=== PATIENT | female | born 1970 | race Caucasian/White ===

== ENCOUNTER 2016-09-25 22:16 | Observation (INO) ==
[2016-09-25] MEDS ORDERED: 0.9 % Sodium Chloride 1,000 ML IVC ONE (22:50)
[2016-09-25] MEDS ORDERED: Ondansetron 4 MG/2 ML VIAL IVP ONE (22:50)
--- NOTE | 2016-09-25 22:55 | Emergency Department Note ---
Disposition Clinical Impression: Drug-induced nausea and vomiting Disposition: Admitted As Inpatient Condition: Fair Referrals: Ghassan Deng CNP [Primary Care Provider] - Forms: ED Satisfaction Letter Abdominal Pain HPI - General Chief Complaint: ED Nausea/Vomiting/Diarrhea Stated Complaint: Vomiting S/P Colonoscopy this am Time Seen by Provider: 09/25/16 22:17 Source: patient Mode of arrival: ambulatory Limitations: no limitations Nursing Notes Reviewed: Yes Vital Signs Reviewed: Yes - History of Present Illness HPI Narrative: 46-year-old female presents to emergency department for evaluation of abdominal pain and vomiting. Patient had colonoscopy done earlier this day and had some polyps removed. Patient states that she has not been able to keep any fluids down since she has gone home. She also states she has had some residual diarrhea related to the bowel prep. She denies any melena hematochezia. She has no fever or chills. She complains of epigastric discomfort. Pain Scale: 10 - Related Data Home Medications Medication Instructions Recorded Confirmed Quetiapine Fumarate [Seroquel] 300 mg PO HS 08/24/15 01/05/16 Acetaminophen w/Cod 300-30 mg 1 each PO Q4HR 09/25/16 09/25/16 [Tylenol w/Codeine #3] Baclofen 20 mg PO BID 09/25/16 09/25/16 Allergies Allergy/AdvReac Type Severity Reaction Status Date / Time Penicillins AdvReac See Verified 09/25/16 22:45 Comments prednisone AdvReac See Verified 09/25/16 22:45 Comments Review of Systems: Constitutional: [Negative for fever and chills.] HENT: [Negative for congestion.] Eyes: [Negative for discharge.] Respiratory: [Negative for shortness of breath.] Cardiovascular: [Negative for chest pain.] Gastrointestinal: See history of present illness Endocrine: [Negative for excessive thirst,urination] Genitourinary: [Negative for dysuria and frequency.] Musculoskeletal: [Negative for myalgias and arthralgias.] Skin: [Negative for rash.] Neurological: [Negative for dizziness, localized weakness and headaches.] Psychiatric/Behavioral: [Negative for nervous/anxious.] All other systems reviewed and are negative. Abdominal Pain PMH - Past Medical History Medical history: Reports: cancer, COPD, hypertension, other Female Surgical History: Reports: other NARCOTICS AND VICE DETECTIVE history: Reports: no NARCOTICS AND VICE DETECTIVE history Psychiatric history: Reports: depression - Social History Smoking status: Current every day smoker Alcohol use: Reports: none Drug use: Reports: none Physical Exam Constitutional: Patient is [alert], [healthy], [well nourished, well developed] , ears uncomfortable and cooperative. . The patient appears, nontoxic, and [ does not appear ill]. There is mild pain. HENT: Head: Normocephalic and atraumatic. Right Ear: External ear normal. Left Ear: External ear normal. Nose: Nose normal. Mouth/Throat: Oropharynx is clear and mucous membranes show mild dehydration [] Eyes: Conjunctivae and EOM are normal. Pupils are equal, round, and reactive to light. Right eye exhibits no discharge. Left eye exhibits no discharge. Neck: Trachea is midline, normal range of motion and phonation normal. Neck supple. Cardiovascular: Regular rhythm, S1 normal, S2 normal, normal heart sounds and intact distal pulses. Exam reveals no gallop and no friction rub. No murmur heard. Pulmonary/Chest: Effort [normal] No stridor. [No] tachypnea. [No] respiratory distress. There are [no] decreased breath sounds. [There no wheezes, no rhonchi , or rales.] Abdominal: Soft. Bowel sounds are normal. There exhibits no distension and no mass. There is no hepatosplenomegaly. There is mild epigastric tenderness, [no] CVA tenderness. There is no rigidity, no rebound, no guarding. Musculoskeletal: Normal range of motion of uninvolved extremities. There exhibits [no] edema. [No tenderness palpable.] [ ] Neurological: Patient is alert. Patient displays no atrophy and no tremor. No cranial nerve deficit and exhibits normal muscle tone. Coordination normal. Skin: Skin is warm and dry. No rash noted. No erythema. Psychiatric: Patient has a normal mood,affect, behavior, judgment, and thought content. Course - Reevaluation(s) Reevaluation #1: Patient continues to have nausea and vomiting after Zofran, Phenergan, and Pepcid. There is no significant abdominal pain at this time. Her laboratory workup and x-rays do not show any acute abnormalities. Most likely this vomiting is secondary to the anesthesia given for her colonoscopy. I will admit her for observation overnight to allow her GI tract to rest and give her IV fluids Vital Signs Temperature 98.1 F 09/25/16 22:37 Pulse Rate 94 09/25/16 22:37 Respiratory Rate 18 09/25/16 22:37 Blood Pressure 139/95 09/25/16 22:37 O2 Sat by Pulse Oximetry 93 L 09/25/16 22:37 Temperature 98.1 F 09/25/16 22:37 Pulse Rate 94 09/25/16 22:37 Respiratory Rate 18 09/25/16 22:37 Blood Pressure 139/95 09/25/16 22:37 O2 Sat by Pulse Oximetry 93 L 09/25/16 22:37 Oxygen Delivery Oxygen Delivery Room Air Abdominal Pain - MDM Narrative Medical decision making narrative: Admission orders were written at the convenience for the hospitalist who will assume care. - Lab Data Lab results reviewed: Yes I reviewed the patient's lab results. Result diagrams: 09/25/16 23:00 09/25/16 23:00 Lab Results 09/25/16 09/25/16 Range/Units 23:00 23:00 WBC 8.9 (4.3-11.1) K/mcL RBC 4.49 (3.82-4.97) M/mcL Hgb 14.1 (11.5-15.4) g/dL Hct 42.2 (35.3-44.9) % MCV 94.0 (83.0-100.0) fL MCH 31.4 (28.0-33.3) pg MCHC 33.4 (31.6-35.5) g/dL RDW 12.9 (11.5-14.5) % Plt Count 323 (140-400) K/mcL MPV 8.9 L (9.4-12.4) fL Immature Gran % 0.2 (0-4) % Seg Neutrophils % 90.1 % Lymphocytes % 7.4 % Monocytes % 2.1 % Eosinophils % 0.0 % Basophils % 0.2 % Neutrophils # 8.0 (1.6-8.9) K/mcL Lymphocytes # 0.7 (0.6-4.6) K/mcL Monocytes # 0.2 (0.0-1.3) K/mcL Eosinophils # 0.0 (0.0-0.6) K/mcL Basophils # 0.0 (0.0-0.2) K/mcL Sodium 144 (136-145) mEq/L Potassium 3.6 (3.5-4.5) mEq/L Chloride 103 (98-109) mEq/L Carbon Dioxide 26 (19-29) mEq/L BUN 11 (7-20) mg/dL Creatinine 0.75 (0.57-1.11) mg/dL Est GFR ( Amer) > 60 (> 60) Est GFR (Non-Af Amer) > 60 (> 60) BUN/Creatinine Ratio 15 (6-26) Glucose 181 H (70-99) mg/dL Calculated Osmolality 302 H (280-300) Calcium 10.2 (8.6-10.8) mg/dL - Radiology Data Radiology results reviewed: Yes I reviewed the patient's radiology results. I have contemporaneously read the radiology report from the radiologist which has the following findings: [Acute abdominal series] IMPRESSION: 1. No acute findings identified in the chest and abdomen.
[2016-09-25 23:13] LABS: Basophils % 0.2 %; Hematocrit 42.2 % (35.3-44.9); Hemoglobin 14.1 g/dL (11.5-15.4); Immature Granulocytes % 0.2 % (0-4); Lymphocytes # 0.7 K/mcL (0.6-4.6); Lymphocytes % 7.4 %; Mean Corpuscular HGB Conc 33.4 g/dL (31.6-35.5); Mean Corpuscular Hemoglobin 31.4 pg (28.0-33.3); Mean Platelet Volume 8.9 fL (9.4-12.4); Monocytes # 0.2 K/mcL (0.0-1.3); Monocytes % 2.1 %; Platelet Count 323 K/mcL (140-400); Red Blood Count 4.49 M/mcL (3.82-4.97); Red Cell Distribution Width 12.9 % (11.5-14.5); Segmented Neutrophils % 90.1 %
[2016-09-25 23:18] LABS: BUN/Creatinine Ratio 15 (6-26); Blood Urea Nitrogen 11 mg/dL (7-20); Calcium 10.2 mg/dL (8.6-10.8); Carbon Dioxide 26 mEq/L (19-29); Chloride 103 mEq/L (98-109); Glucose 181 mg/dL (70-99); Osmolality,Calculated 302 (280-300); Potassium 3.6 mEq/L (3.5-4.5); Sodium 144 mEq/L (136-145); eGFR For African Americans > 60 (> 60); eGFR For Non-African Americans > 60 (> 60)
[2016-09-25] MEDS ORDERED: Famotidine 20 MG/2 ML VIAL IVP ONE (23:38)
[2016-09-25] MEDS ORDERED: *HR* Promethazine 25 MG/ML VIAL IV ONE (23:38)
[2016-09-26] MEDS ORDERED: Naloxone 0.4 MG/ML INJ IVP PRN ×2 (00:23→00:29)
[2016-09-26] MEDS ORDERED: *HR* Promethazine 25 MG/ML VIAL IVP PRN (00:23)
[2016-09-26] MEDS ORDERED: Ondansetron 4 MG/2 ML VIAL IVP PRN (00:23)
[2016-09-26] MEDS ORDERED: 0.9 % Sodium Chloride 1,000 ML IVC SCH (00:30)
[2016-09-26] MEDS: 0.9 % Sodium Chloride 1,000 ML IVC SCH ×4 (02:11→23:00)
[2016-09-26] MEDS ORDERED: FLU VACC QS2016-17 36MOS UP/PF 0.5 ML SYRINGE IM ONE (02:32)
[2016-09-26] MEDS: Ondansetron 4 MG/2 ML VIAL IVP PRN ×4 (05:09→23:04)
[2016-09-26] MEDS: Famotidine 20 MG/2 ML VIAL IVP SCH ×2 (05:10→17:26)
[2016-09-26] MEDS ORDERED: Famotidine 20 MG/2 ML VIAL IVP SCH (06:00)
[2016-09-26] MEDS: *HR* Promethazine 25 MG/ML VIAL IVP PRN ×3 (06:10→18:48)
--- NOTE | 2016-09-26 13:39 | Internal Med History&Physical ---
Date of Encounter: 09/26/16 Time of Encounter: 13:36 Assessment and Plan (1) Drug-induced nausea and vomiting Current visit: Yes Status: Acute Supportive nausea. Try to stop the vomiting and hydrate. Follow-up lab. Internal Medicine - H&P: HPI Chief complaint: Nausea vomiting Admitted From: Emergency Dept Plans for Post Hospital Care: Home History of present illness: Ms. Thomas is a 46 year old female Past Med Surg Social Fam HX - Past Medical History Medical history: cancer, COPD, GERD, hypertension, migraine, other Psychiatric history: depression - Past Surgical History Surgical History: other - Social History Smoking Status: Current every day smoker Packs per day: HALF PACK Smokeless Tobacco Status: No Alcohol use: none Drug use: none - Family History Father Living Status: Hx Family Cancer: Yes Hx Family Endocrine Disorder: Yes Mother Living Status: Hx Family Neurologic Disorders: Yes (Migraines) Sister Living Status: Hx Family Cancer: Yes Hx Family Neurologic Disorders: Yes (Migraines) Internal Medicine - H&P: Meds Quetiapine Fumarate [Seroquel] 300 mg PO HS 08/24/15 [History] Acetaminophen w/Cod 300-30 mg [Tylenol w/Codeine #3] 1 each PO Q4HR 09/25/16 [ History] Baclofen 20 mg PO BID 09/25/16 [History] Allergies Penicillins Adverse Reaction (Verified 09/26/16 02:18) See Comments pt unknown of reaction. states she had a reaction as a child. prednisone Adverse Reaction (Verified 09/26/16 02:18) See Comments pt states it cause her to swell all over. All Systems PM: A 10-system review of systems was performed and is negative for pertinent findings except as documented above in the HPI. - Constitutional Vitals: Temp Pulse Resp BP Pulse Ox 98.6 F 69 17 160/85 97 09/26/16 11:00 09/26/16 11:00 09/26/16 11:00 09/26/16 11:00 09/26/16 11:00 - Head Head exam: Present: atraumatic, normal inspection, normocephalic - Neck Neck exam general surgery: Present: supple, trachea midline. Absent: lymphadenopathy - Respiratory Respiratory exam: Present: CTAB. Absent: accessory muscle use, rales, rhonchi, wheezes - Cardiovascular Cardiovascular exam: Present: RRR, +S1, +S2. Absent: diastolic murmur, gallop, rubs, systolic murmur - GI/Abdominal GI/Abdominal exam: Present: normal bowel sounds, soft, no peritoneal signs ( Patient is completely benign examination. Believe her nothing by mouth right now and see how we do in the a.m.). Absent: distended, tenderness Internal Med - H&P Results - Labs CBC & Chem 7: 09/25/16 23:00 09/25/16 23:00 Labs: Lab looks fine. X-rays are normal - VTE Reasons for not Prescribing Prophylaxis: Treatment not Indicated - Low risk for VTE Documentation of Mechanical Device: Graduated compression elastic hosiery
[2016-09-27] MEDS: 0.9 % Sodium Chloride 1,000 ML IVC SCH (05:20)
[2016-09-27] MEDS: Famotidine 20 MG/2 ML VIAL IVP SCH (05:21)
[2016-09-27 05:43] LABS: Basophils % 0.2 %; Eosinophils % 0.1 %; Hematocrit 33.1 % (35.3-44.9); Hemoglobin 10.5 g/dL (11.5-15.4); Immature Granulocytes % 0.4 % (0-4); Lymphocytes # 2.1 K/mcL (0.6-4.6); Lymphocytes % 25.7 %; Mean Corpuscular HGB Conc 31.7 g/dL (31.6-35.5); Mean Corpuscular Hemoglobin 31.1 pg (28.0-33.3); Mean Corpuscular Volume 97.9 fL (83.0-100.0); Monocytes # 0.6 K/mcL (0.0-1.3); Monocytes % 7.9 %; Neutrophils # 5.3 K/mcL (1.6-8.9); Platelet Count 256 K/mcL (140-400); Red Blood Count 3.38 M/mcL (3.82-4.97); Red Cell Distribution Width 13.2 % (11.5-14.5); Segmented Neutrophils % 65.7 %
[2016-09-27 08:39] LABS: BUN/Creatinine Ratio 19 (6-26); Blood Urea Nitrogen 12 mg/dL (7-20); Calcium 8.8 mg/dL (8.6-10.8); Carbon Dioxide 20 mEq/L (19-29); Chloride 112 mEq/L (98-109); Glucose 68 mg/dL (70-99); Osmolality,Calculated 294 (280-300); Potassium 3.4 mEq/L (3.5-4.5); Sodium 143 mEq/L (136-145); eGFR For African Americans > 60 (> 60); eGFR For Non-African Americans > 60 (> 60)
[2016-09-27] MEDS ORDERED: Acetaminophen 325 MG TABLET PO PRN (10:47)
--- NOTE | 2016-09-27 11:52 | Discharge Summary ---
Date of Encounter: 09/27/16 Time of Encounter: 11:50 - Discharge Diagnosis (1) Drug-induced nausea and vomiting Priority: Primary Status: Acute - Discharge Medications Home Medications: Quetiapine Fumarate [Seroquel] 300 mg PO HS 08/24/15 [History] Acetaminophen w/Cod 300-30 mg [Tylenol w/Codeine #3] 1 each PO Q4HR 09/25/16 [ History] Baclofen 20 mg PO BID 09/25/16 [History] Allergies/Adverse Reactions: Allergies Penicillins Adverse Reaction (Verified 09/26/16 02:18) See Comments pt unknown of reaction. states she had a reaction as a child. prednisone Adverse Reaction (Verified 09/26/16 02:18) See Comments pt states it cause her to swell all over. Date of admission: 09/26/16 00:39 Primary care physician: Ghassan Deng CNP Discharging clinician: Lee Gao Anticipated date of discharge: 09/27/16 - Patient Status Disposition: Home, Self-Care Condition: Good Functional capacity at discharge: independent ambulation Overall status at discharge: patient is back to baseline - Discharge Instructions Follow Up With: Ghassan Deng CNP [Primary Care Provider] - - Diet and Activity Activity: resume usual activities as tolerated Diet: other (It will light diet avoiding fried heavier foods. For couple of days.) Interval History: This patient had a colonoscopy at [facility] and went home and started having nausea and vomiting. She said she had a little diarrhea too. I explained to her there was not much in her colon to the nausea and vomiting could have been from medication she received. She had a little discomfort also explained that was due to Arava to used to expand the colon. All of this appears to have resolved. Hospital course: Ms. Thomas is a 46 year old female - Time Spent with Patient Total time spent providing and/or coordinating discharge services: Less than 30 minutes - Constitutional Vitals: Temp Pulse Resp BP Pulse Ox 98.2 F 75 16 163/83 97 09/27/16 08:06 09/27/16 08:06 09/27/16 08:06 09/27/16 08:06 09/27/16 08:06 - Head Head exam: Present: atraumatic, normocephalic - Neck Neck exam general surgery: Present: supple, trachea midline. Absent: lymphadenopathy - Respiratory Respiratory exam: Present: CTAB. Absent: accessory muscle use, rales, rhonchi, wheezes - Cardiovascular Cardiovascular exam: Present: RRR, +S1, +S2. Absent: diastolic murmur, gallop, rubs, systolic murmur - GI/Abdominal GI/Abdominal exam: Present: normal bowel sounds, soft, no peritoneal signs. Absent: distended, tenderness - VTE Reasons for not Prescribing Prophylaxis: Treatment not Indicated - Low risk for VTE Documentation of Mechanical Device: Graduated compression elastic hosiery
[2016-09-27 12:20] VITALS: BP 163/82
== END 2016-09-27 12:20 | disposition home or self-care (01) ==
LOC: INPGRE 22:16 → EMEROOGRE 22:16 → INPGRE 09-26 02:00
PROVIDERS: ADMIT Internal Medicine; ATTEND Internal Medicine

== ENCOUNTER 2019-05-25 09:36 | Observation (INO) ==
[2019-05-25] MEDS ORDERED: Ipratropium/Albuterol Neb 3 ML ONE ×2 (09:43→14:29)
[2019-05-25] MEDS ORDERED: Ipratropium/Albuterol Neb 3 ML IH ONE (09:45)
[2019-05-25] MEDS ORDERED: methylPREDNISolone 125 MG/2 ML VIAL IVP ONE (09:54)
--- NOTE | 2019-05-25 09:58 | Emergency Department Note ---
Disposition Clinical Impression: Acute exacerbation of chronic obstructive airways disease Disposition: Admitted As Inpatient Condition: Fair Instructions: Chronic Obstructive Pulmonary Disease (ED) Referrals: Cecy Sanchez, ASSET MANAGEMENT ANALYST [Primary Care Provider] - Forms: ED Satisfaction Letter Time of Disposition: 13:30 SOB HPI - General Chief Complaint: ED Shortness of Breath/Dyspnea Stated Complaint: trouble breathing Time Seen by Provider: 05/25/19 09:49 Source: patient Limitations: no limitations Nursing Notes Reviewed: Yes Vital Signs Reviewed: Yes - History of Present Illness 48-year-old female percents for evaluation of shortness of breath. Patient has a known history of COPD and uses oxygen continuously at home at 3 L. She also uses nebulizers [id number] as well. Despite her COPD she continues to smoke a half pack per day. Patient states she has been coughing up brown sputum. She denies any chest pain. Patient denies any prior history of pressure ventilation. She states one hospitalization related to her breathing - Related Data Home Medications Medication Instructions Recorded Confirmed Quetiapine Fumarate [Seroquel] 400 mg PO HS 08/24/15 05/25/19 Albuterol Sulfate [Ventolin Hfa] 2 puff IH Q4H PRN 03/21/17 01/25/19 Warfarin [Coumadin] 4 mg PO DAILY 06/10/18 05/25/19 Aclidinium [place] [Tudorza 1 puff PO BID 01/25/19 05/25/19 Pressair] Baclofen [Lioresal] 10 mg PO TID 01/25/19 01/25/19 Mometasone/Formoterol [Dulera 100 2 puff PO BID 01/25/19 01/25/19 Mcg/5 Mcg Inhaler] Buspirone HCl [Buspar] 15 mg PO BID 05/25/19 05/25/19 Metformin HCl [Glucophage] 1,000 mg PO BID 05/25/19 05/25/19 Metoprolol Succinate [Toprol Xl] 50 mg PO DAILY 05/25/19 05/25/19 Montelukast [Singulair] 10 mg PO DAILY 05/25/19 05/25/19 Allergies Allergy/AdvReac Type Severity Reaction Status Date / Time prednisone AdvReac Intermediate See Verified 01/25/19 12:06 Comments doxycycline AdvReac Nausea Verified 01/25/19 12:06 Penicillins AdvReac See Verified 01/25/19 12:06 Comments All systems ED: reviewed and negative except as stated. Review of Systems: As Per HPI Past Medical History - Past Medical History Attestation: Yes The following information was validated with the patient. Source: patient Medical history: Reports: atrial fibrillation, cancer, COPD, DVT, pulmonary embolus, other Surgical history: Reports: other (VATS with lung resection, right upper lobe) Psychiatric history: Reports: anxiety, depression REVIEW ENGINEER history: Reports: non-contributory - Social History Smoking Status: Current every day smoker Smokeless Tobacco Status: No Alcohol use: Reports: none Drug use: Reports: none Physical Exam Constitutional: Patient is [alert], thinly nourished and mildly tachypneic and cooperative. HENT: Head: Normocephalic and atraumatic. Right Ear: External ear normal. Left Ear: External ear normal. Nose: Nose normal. Mouth/Throat: Oropharynx is clear and mucous membranes show [good hydration.] Eyes: Conjunctivae and EOM are normal. Pupils are equal, round, and reactive to light. Right eye exhibits [no] discharge. Left eye exhibits [no] discharge. Neck: Trachea is midline, normal range of motion and [phonation normal]. Neck supple. Cardiovascular: [Regular rhythm], S1 normal, S2 normal, normal heart sounds and intact distal pulses. Exam reveals no gallop and no friction rub. No murmur heard. [Capillary refill is brisk.] [Peripheral pulses are 2+] Pulmonary/Chest: Effort increased No stridor. Mild tachypnea. [No] respiratory distress. There are decreased breath sounds. There are faint wheezes heard throughout after 2 breathing treatments. There is no rhonchi or rales Abdominal: Soft. [Bowel sounds are normal]. There exhibits [no] distension and [no] mass. There is no hepatosplenomegaly. There is [no tenderness], [no] CVA tenderness. There is [no rigidity, no rebound, no guarding]. Musculoskeletal: Normal range of motion of uninvolved extremities. There exhibits [no edema]. [ ] Neurological: Patient is alert. Patient displays no atrophy and no tremor. Moves all 4 extremities equally without gross deficit. No cranial nerve deficit and exhibits normal muscle tone. Coordination normal grossly. Skin: Skin is warm and dry. No erythema. No rash noted. Psychiatric: Patient has a [normal mood and affect.] Course Course Narrative: Patient was given breathing treatments 3 followed by BiPAP which drove her carbon dioxide back to normal range. I spoke with Dr. Keating and we will admit her for further fashion treatment Vital Signs Temperature 97.6 F 05/25/19 09:41 Pulse Rate 129 05/25/19 09:41 Respiratory Rate 22 05/25/19 09:41 Blood Pressure 174/100 05/25/19 09:41 O2 Sat by Pulse Oximetry 74 05/25/19 09:41 Temperature 97.6 F 05/25/19 09:41 Pulse Rate 94 05/25/19 13:58 Respiratory Rate 19 05/25/19 13:58 Blood Pressure 157/84 05/25/19 13:58 O2 Sat by Pulse Oximetry 95 05/25/19 14:10 Oxygen Delivery Oxygen Delivery Nasal Cannula Shortness of Breath/Dyspnea - Lab Data Lab results reviewed: Yes I reviewed the patient's lab results. Result diagrams: 05/25/19 09:50 05/25/19 09:50 Lab Results 05/25/19 05/25/19 05/25/19 Range/Units 09:50 09:50 09:50 WBC 3.2 L (4.3-11.1) K/mcL RBC 3.24 L (3.82-4.97) M/mcL Hgb 10.1 L (11.5-15.4) g/dL Hct 34.2 L (35.3-44.9) % MCV 105.6 H (83.0-100.0) fL MCH 31.2 (28.0-33.3) pg MCHC 29.5 L (31.6-35.5) g/dL RDW 13.2 (11.5-14.5) % Plt Count 256 (140-400) K/mcL MPV 9.0 L (9.4-12.4) fL Immature Gran % 0.3 (0-4) % Seg Neutrophils % 59.2 % Lymphocytes % 27.6 % Monocytes % 11.3 % Eosinophils % 1.3 % Basophils % 0.3 % Neutrophils # 1.9 (1.6-8.9) K/mcL Lymphocytes # 0.9 (0.6-4.6) K/mcL Monocytes # 0.4 (0.0-1.3) K/mcL Eosinophils # 0.0 (0.0-0.6) K/mcL Basophils # 0.0 (0.0-0.2) K/mcL PT (9.4-12.1) Seconds INR D-Dimer (0-500) ng/mLFEU ABG pH (7.32-7.45) pH Units ABG pCO2 (35-45) mmHg ABG pO2 (85-104) mmHg ABG HCO3 (21-27) mEq/L ABG Total CO2 (20-26) mEq/L ABG O2 Saturation (95-98) % ABG Base Excess (-2 to 3) mEq/L Sodium 142 (136-145) mEq/L Potassium 3.1 L (3.5-5.1) mEq/L Chloride 99 (98-107) mEq/L Carbon Dioxide 40 H* (23-29) mEq/L BUN 6 (6-20) mg/dL Creatinine 0.52 L (0.60-1.20) mg/dL Est GFR ( Amer) > 60 (> 60) Est GFR (Non-Af Amer) > 60 (> 60) BUN/Creatinine Ratio 12 (6-26) Glucose 137 H (70-105) mg/dL Calculated Osmolality 294 (280-300) Lactic Acid 0.6 (0.5-2.2) mmol/L Calcium 9.4 (8.6-10.3) mg/dL Total Bilirubin 0.3 (0.3-1.0) mg/dL Direct Bilirubin 0.1 (0.0-0.2) mg/dL Indirect Bilirubin 0.2 (0.0-1.2) mg/dL AST 13 (13-39) Units/L ALT 14 (7-52) Units/L Alkaline Phosphatase 77 (34-104) Units/L B-Natriuretic Peptide (Less than 100) pg/mL Serum Total Protein 6.7 (6.4-8.9) g/dL Albumin 3.8 (3.5-5.7) g/dL Globulin 2.9 (2.4-3.5) g/dL Albumin/Globulin Ratio 1.3 (1.1-2.2) Person Notif of Crit 05/25/19 05/25/19 05/25/19 Range/Units 09:50 09:50 09:50 WBC (4.3-11.1) K/mcL RBC (3.82-4.97) M/mcL Hgb (11.5-15.4) g/dL Hct (35.3-44.9) % MCV (83.0-100.0) fL MCH (28.0-33.3) pg MCHC (31.6-35.5) g/dL RDW (11.5-14.5) % Plt Count (140-400) K/mcL MPV (9.4-12.4) fL Immature Gran % (0-4) % Seg Neutrophils % % Lymphocytes % % Monocytes % % Eosinophils % % Basophils % % Neutrophils # (1.6-8.9) K/mcL Lymphocytes # (0.6-4.6) K/mcL Monocytes # (0.0-1.3) K/mcL Eosinophils # (0.0-0.6) K/mcL Basophils # (0.0-0.2) K/mcL PT 25.8 H (9.4-12.1) Seconds INR 2.3 D-Dimer < 215 (0-500) ng/mLFEU ABG pH (7.32-7.45) pH Units ABG pCO2 (35-45) mmHg ABG pO2 (85-104) mmHg ABG HCO3 (21-27) mEq/L ABG Total CO2 (20-26) mEq/L ABG O2 Saturation (95-98) % ABG Base Excess (-2 to 3) mEq/L Sodium (136-145) mEq/L Potassium (3.5-5.1) mEq/L Chloride (98-107) mEq/L Carbon Dioxide (23-29) mEq/L BUN (6-20) mg/dL Creatinine (0.60-1.20) mg/dL Est GFR ( Amer) (> 60) Est GFR (Non-Af Amer) (> 60) BUN/Creatinine Ratio (6-26) Glucose (70-105) mg/dL Calculated Osmolality (280-300) Lactic Acid (0.5-2.2) mmol/L Calcium (8.6-10.3) mg/dL Total Bilirubin (0.3-1.0) mg/dL Direct Bilirubin (0.0-0.2) mg/dL Indirect Bilirubin (0.0-1.2) mg/dL AST (13-39) Units/L ALT (7-52) Units/L Alkaline Phosphatase (34-104) Units/L B-Natriuretic Peptide 333 H (Less than 100) pg/mL Serum Total Protein (6.4-8.9) g/dL Albumin (3.5-5.7) g/dL Globulin (2.4-3.5) g/dL Albumin/Globulin Ratio (1.1-2.2) Person Notif of Crit 05/25/19 05/25/19 05/25/19 Range/Units 10:07 12:32 13:41 WBC (4.3-11.1) K/mcL RBC (3.82-4.97) M/mcL Hgb (11.5-15.4) g/dL Hct (35.3-44.9) % MCV (83.0-100.0) fL MCH (28.0-33.3) pg MCHC (31.6-35.5) g/dL RDW (11.5-14.5) % Plt Count (140-400) K/mcL MPV (9.4-12.4) fL Immature Gran % (0-4) % Seg Neutrophils % % Lymphocytes % % Monocytes % % Eosinophils % % Basophils % % Neutrophils # (1.6-8.9) K/mcL Lymphocytes # (0.6-4.6) K/mcL Monocytes # (0.0-1.3) K/mcL Eosinophils # (0.0-0.6) K/mcL Basophils # (0.0-0.2) K/mcL PT (9.4-12.1) Seconds INR D-Dimer (0-500) ng/mLFEU ABG pH 7.32 7.40 7.39 (7.32-7.45) pH Units ABG pCO2 81 H* 65 H 66 H (35-45) mmHg ABG pO2 88 64 L 58 L (85-104) mmHg ABG HCO3 41 H 40 H 40 H (21-27) mEq/L ABG Total CO2 44 H 42 H 42 H (20-26) mEq/L ABG O2 Saturation 95 91 L 88 L (95-98) % ABG Base Excess 12 H 12 H 12 H (-2 to 3) mEq/L Sodium (136-145) mEq/L Potassium (3.5-5.1) mEq/L Chloride (98-107) mEq/L Carbon Dioxide (23-29) mEq/L BUN (6-20) mg/dL Creatinine (0.60-1.20) mg/dL Est GFR ( Amer) (> 60) Est GFR (Non-Af Amer) (> 60) BUN/Creatinine Ratio (6-26) Glucose (70-105) mg/dL Calculated Osmolality (280-300) Lactic Acid (0.5-2.2) mmol/L Calcium (8.6-10.3) mg/dL Total Bilirubin (0.3-1.0) mg/dL Direct Bilirubin (0.0-0.2) mg/dL Indirect Bilirubin (0.0-1.2) mg/dL AST (13-39) Units/L ALT (7-52) Units/L Alkaline Phosphatase (34-104) Units/L B-Natriuretic Peptide (Less than 100) pg/mL Serum Total Protein (6.4-8.9) g/dL Albumin (3.5-5.7) g/dL Globulin (2.4-3.5) g/dL Albumin/Globulin Ratio (1.1-2.2) Person Notif of Sherif hussein - Radiology Data Radiology results reviewed: Yes I reviewed the patient's radiology results. XR/XR chest 1V portable IMPRESSION: Findings of COPD and emphysema. No acute focal process - EKG Data EKG attestation: Yes I reviewed and interpreted this EKG. EKG shows normal: Reports: sinus rhythm, intervals, QRS complexes Rate: Reports: tachycardia Dennis/QRS: Reports: right axis deviation Interpretation: Reports: nonspecific ST-T wave changes Critical Care Time Critical Care Time: Yes Total Critical Care Time: 60 Attestation: Pt received critical care, I believe without intervention imminent failure of an organ system or systems was likely and required critical intervention. Without immediate treatment, I felt patient had high likelihood of decompensation to point of disability or .
[2019-05-25 10:12] LABS: ABG Base Excess 12 mEq/L (-2 to 3); ABG HCO3 41 mEq/L (21-27); ABG Oxygen Saturation 95 % (95-98); ABG PCO2 81 mmHg (35-45); ABG PH 7.32 pH Units (7.32-7.45); ABG PO2 88 mmHg (85-104); ABG TCO2 44 mEq/L (20-26)
[2019-05-25 10:17] LABS: Basophils % 0.3 %; Eosinophils % 1.3 %; Hematocrit 34.2 % (35.3-44.9); Hemoglobin 10.1 g/dL (11.5-15.4); Immature Granulocytes % 0.3 % (0-4); Lymphocytes # 0.9 K/mcL (0.6-4.6); Lymphocytes % 27.6 %; Mean Corpuscular HGB Conc 29.5 g/dL (31.6-35.5); Mean Corpuscular Hemoglobin 31.2 pg (28.0-33.3); Mean Corpuscular Volume 105.6 fL (83.0-100.0); Monocytes # 0.4 K/mcL (0.0-1.3); Monocytes % 11.3 %; Neutrophils # 1.9 K/mcL (1.6-8.9); Platelet Count 256 K/mcL (140-400); Red Blood Count 3.24 M/mcL (3.82-4.97); Red Cell Distribution Width 13.2 % (11.5-14.5); Segmented Neutrophils % 59.2 %; White Blood Count 3.2 K/mcL (4.3-11.1)
[2019-05-25 10:37] LABS: Alanine Aminotransferase 14 Units/L (7-52); Albumin 3.8 g/dL (3.5-5.7); Albumin/Globulin Ratio 1.3 (1.1-2.2); Alkaline Phosphatase 77 Units/L (34-104); Aspartate Amino Transferase 13 Units/L (13-39); BUN/Creatinine Ratio 12 (6-26); Bilirubin,Direct 0.1 mg/dL (0.0-0.2); Bilirubin,Indirect 0.2 mg/dL (0.0-1.2); Bilirubin,Total 0.3 mg/dL (0.3-1.0); Blood Urea Nitrogen 6 mg/dL (6-20); Calcium 9.4 mg/dL (8.6-10.3); Carbon Dioxide 40 mEq/L (23-29); Chloride 99 mEq/L (98-107); Globulin 2.9 g/dL (2.4-3.5); Glucose 137 mg/dL (70-105); Osmolality,Calculated 294 (280-300); Potassium 3.1 mEq/L (3.5-5.1); Sodium 142 mEq/L (136-145); Total Protein 6.7 g/dL (6.4-8.9); eGFR For African Americans > 60 (> 60); eGFR For Non-African Americans > 60 (> 60)
[2019-05-25 12:34] LABS: ABG Base Excess 12 mEq/L (-2 to 3); ABG HCO3 40 mEq/L (21-27); ABG Oxygen Saturation 91 % (95-98); ABG PCO2 65 mmHg (35-45); ABG PO2 64 mmHg (85-104); ABG TCO2 42 mEq/L (20-26)
[2019-05-25] MEDS ORDERED: Levalbuterol Neb 1.25 MG/3 ML IH ONE (12:38)
[2019-05-25 13:44] LABS: ABG Base Excess 12 mEq/L (-2 to 3); ABG HCO3 40 mEq/L (21-27); ABG Oxygen Saturation 88 % (95-98); ABG PCO2 66 mmHg (35-45); ABG PH 7.39 pH Units (7.32-7.45); ABG PO2 58 mmHg (85-104); ABG TCO2 42 mEq/L (20-26)
[2019-05-25 14:07] LABS: INR 2.3; Prothrombin Time 25.8 Seconds (9.4-12.1)
[2019-05-25] MEDS ORDERED: Azithromycin 500 MG in D5% in Water 250 ML IVPB ONE (14:15)
[2019-05-25] MEDS ORDERED: Naloxone 0.4 MG/ML INJ IVP PRN (14:29)
[2019-05-25] MEDS ORDERED: Baclofen 10 MG TABLET PO PRN (14:29)
[2019-05-25] MEDS ORDERED: Dextrose Gel 15 GM/37.5 ML TUBE PO PRN ×3 (14:29→20:36)
[2019-05-25] MEDS ORDERED: Albuterol 2.5 MG/3 ML NEBULIZER IH PRN (15:00)
[2019-05-25] MEDS ORDERED: Azithromycin 500 MG in 0.9 % Sodium Chloride 250 ML IVPB ONE (15:36)
--- NOTE | 2019-05-25 16:04 | Internal Med History&Physical ---
Date of Encounter: 05/25/19 Time of Encounter: 21:16 Assessment and Plan (1) Acute exacerbation of chronic obstructive airways disease Current visit: Yes Status: Acute She initially presented to the emergency room hypoxic with an elevated CO2 she was started on BiPAP. She did have an ABG on BiPAP that did show elevated CO2 and hypoxia she was weaned off the BiPAP and her ABG was repeated in our she was feeling better. She is on oxygen she is hypoxic. She did receive Solu-Medrol duo nebs in the emergency room will add Zithromax and Rocephin. We will continue her duo nebs. She does have a history of congenital heart disease the ER physician did not feel is related to anything cardiac. We will continue to monitor her (2) Congenital heart disease in adult Current visit: Yes Status: Acute Her BMP was only slightly elevated. She is on telemetry will continue troponins. The ER physician did not feel is related to her congenital heart issue will check an echo as her murmur has gotten worse per patient in she is short of breath (3) Depression Current visit: Yes Status: Chronic Continue her home medication Qualifiers: Depression Type: major depressive disorder Major depression recurrence: recurrent Active/Remission status: currently active Major depression episode severity: unspecified Qualified Code(s): F33.9 - Major depressive disorder, recurrent, unspecified (4) DVT prophylaxis Current visit: Yes Status: Acute He is on Coumadin her INR is therapeutic (5) COPD (chronic obstructive pulmonary disease) Current visit: Yes Status: Chronic sHe is high risk she is on home oxygen she does continue to smoke despite being a congenital heart patient and a history of lung cancer as well. Qualifiers: COPD type: COPD with acute exacerbation Qualified Code(s): J44.1 - Chronic obstructive pulmonary disease with (acute) exacerbation (6) History of lung cancer Current visit: Yes Status: Acute She is chronically on oxygen she does continue to smoke. (7) History of pulmonary embolus (PE) Current visit: Yes Status: Acute sHe is on Coumadin her INR is therapeutic we will continue her home dose (8) Tobacco abuse counseling Current visit: Yes Status: Acute (9) DM2 (diabetes mellitus, type 2) Current visit: Yes Status: Acute She is not tolerate the Glucophage at home she is not limited take it we will try adding glipizide here. We will give her sliding scale insulin per her Accu- Cheks as I am sure it will go up with her being on IV steroids. Qualifiers: Diabetes mellitus correction insulin use: without correction use Diabetes mellitus complication status: without complication Qualified Code(s): E11.9 - Type 2 diabetes mellitus without complications Internal Medicine - H&P: HPI Chief complaint: Short of breath Admitted From: Home History of present illness: Ms. Thomas is a 48 year old female With a history of lung cancer status post lobectomy, COPD, chronic oxygen use at home, and congenital heart disease status post repair at 1 years of age who presents to the emergency room with cough purulent sputum wheezing and shortness of breath. Initially she was hypoxic she had an elevated CO2 she was placed on BiPAP she was eventually weaned to room air after she blew off her CO2 she was given duo nebs and Solu-Medrol in the emergency room. Discussed at length with the ER physician about whether to transfer her keep her here I was concerned about her congenital heart disease his pre-confident it is not related to the congenital heart disease at all that this is purely COPD. She was put in the hospital continued on Solu-Medrol duo nebs oxygen Rocephin and Zithromax. She started feeling ill a couple of days ago with rhinorrhea cough. She has several ill contacts felt like she was starting to get a cold. But will get confused at home and her oxygen level was in the 70s so she came into the emergency room. Since she has been here and off BiPAP she says she is feeling much better. She is still short of breath it is hard to get up and go to the restroom. She does get dizzy when she gets up and goes to the restroom. She has not had any fevers she has not had any chest pain or palpitations. She has not had any nausea or vomiting or diarrhea with this. She did not take anything for it at home. She did see Dr. Horton her rn angiography and he thought her murmur had gotten worse. Past Med Surg Social Fam HX - Past Medical History Medical history: atrial fibrillation, cancer, COPD, DVT, diabetes, hyperli pidemia, pulmonary embolus, other Additional medical history: Lupus of the blood, Rt lung cancer, Anxiety. 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 Open heart surgery (tr ansposition of great vessel repair, ASD at 1 yoa). Rt finger surgery amputation. Rt wrist surgery torn ligament. - Social History Smoking Status: Current every day smoker Smokeless Tobacco Status: No Alcohol use: none Drug use: none - Family History Father Living Status: Age at : 55 Hx Family Cancer: Yes (lung) Hx Family Endocrine Disorder: Yes (dm2) Mother Living Status: Age at : 64 Hx Family Neurologic Disorders: Yes ("brain bleed", cva) Sister Living Status: Hx Family Cancer: Yes (lung) Hx Family Neurologic Disorders: Yes (Migraines) Internal Medicine - H&P: Meds Quetiapine Fumarate [Seroquel] 400 mg PO HS 08/24/15 [History] Albuterol Sulfate [Ventolin Hfa] 2 puff IH Q4H PRN 03/21/17 [History] Warfarin [Coumadin] 4 mg PO DAILY 06/10/18 [History] Aclidinium [place] [Tudorza Pressair] 1 puff PO BID 01/25/19 [History] Baclofen [Lioresal] 10 mg PO TID 01/25/19 [History] Mometasone/Formoterol [Dulera 100 Mcg/5 Mcg Inhaler] 2 puff PO BID 01/25/19 [History] Buspirone HCl [Buspar] 15 mg PO BID 05/25/19 [History] Metformin HCl [Glucophage] 1,000 mg PO BID 05/25/19 [History] Metoprolol Succinate [Toprol Xl] 50 mg PO DAILY 05/25/19 [History] Montelukast [Singulair] 10 mg PO DAILY 05/25/19 [History] Allergy/AdvReac Type Severity Reaction Status Date / Time prednisone AdvReac Intermediate See Verified 01/25/19 12:06 Comments doxycycline AdvReac Nausea Verified 01/25/19 12:06 Penicillins AdvReac See Verified 01/25/19 12:06 Comments All Systems PM: A 10-system review of systems was performed and is negative for pertinent findings except as documented above in the HPI. - Constitutional Constitutional: fatigue, no anorexia, no chills, no fever(s), no falls, no weakness - EENT Eyes: no change in vision Nose, mouth and throat: nasal congestion, nasal discharge, post-nasal drip, no epistaxis, no sore throat - Cardiovascular Cardiovascular ROS IM: dyspnea, lightheadedness, no chest pain, no edema, no palpitations, no syncope - Respiratory Respiratory: cough, dyspnea, wheezing, no hemoptysis - Gastrointestinal Gastrointestinal: no abdominal pain, no constipation, no cramping, no diarrhea, no hematochezia, no loose stools, no melena, no nausea, no vomiting - Genitourinary Genitourinary: no abnormal vaginal bleeding Menstruation: post menopausal - Musculoskeletal Musculoskeletal ROS IM: no myalgias - Integumentary Integumentary IM: no pruritus, no rash - Neurological Neurological ROS: no numbness, no paresthesias - Psychiatric Psychiatric: anxiety, depression - Endocrine Endocrine IM: fatigue - Constitutional Vitals: Temp Pulse Resp BP Pulse Ox 97.6 F 87 22 152/82 95 05/25/19 15:54 05/25/19 15:54 05/25/19 15:54 05/25/19 15:54 05/25/19 15:54 General appearance: Present: A&O X 3, no acute distress, answers questions appropriately - Head Head exam: Present: atraumatic, normocephalic - Neck Neck exam general surgery: Present: supple, trachea midline. Absent: lymphadenopathy - Respiratory Respiratory exam: Present: decreased breath sounds, prolonged expiratory phase, wheezes - Cardiovascular Cardiovascular exam: Present: RRR, systolic murmur Additional comments: Well-healed open-heart surgery scar, well-healed right posterior chest lobectomy scar - GI/Abdominal GI/Abdominal exam: Present: normal bowel sounds, soft, no peritoneal signs. Absent: distended, guarding, mass, tenderness - Extremities Exam Extremities exam: Present: normal capillary refill, mottling, warm. Absent: cyanotic (She does have clubbing of her fingernails), pedal edema - Expanded Upper Extremities Exam General: Present: avulsion (Well-healed of the right second digit) - Skin Skin exam: Present: dry, warm. Absent: rash Internal Med - H&P Results - Labs CBC & Chem 7: 05/25/19 09:50 05/25/19 09:50 Labs: Short CBC 05/25/19 Range/Units 09:50 WBC 3.2 L (4.3-11.1) K/mcL Hgb 10.1 L (11.5-15.4) g/dL Hct 34.2 L (35.3-44.9) % Plt Count 256 (140-400) K/mcL Neutrophils # 1.9 (1.6-8.9) K/mcL BMP 05/25/19 09:50 Sodium 142 Potassium 3.1 L Chloride 99 Carbon Dioxide 40 H* BUN 6 Creatinine 0.52 L Glucose 137 H Calcium 9.4 Liver Function 05/25/19 Range/Units 09:50 Total Bilirubin 0.3 (0.3-1.0) mg/dL Direct Bilirubin 0.1 (0.0-0.2) mg/dL AST 13 (13-39) Units/L ALT 14 (7-52) Units/L Alkaline Phosphatase 77 (34-104) Units/L Albumin 3.8 (3.5-5.7) g/dL - ABG Interpretation ABG results: 05/25/19 05/25/19 05/25/19 10:07 12:32 13:41 ABG pH 7.32 7.40 7.39 ABG pCO2 81 H* 65 H 66 H ABG pO2 88 64 L 58 L ABG HCO3 41 H 40 H 40 H ABG Total CO2 44 H 42 H 42 H ABG O2 Saturation 95 91 L 88 L ABG Base Excess 12 H 12 H 12 H - Impressions ITS Impressions Chest X-Ray 05/25/19 10:05 IMPRESSION: Findings of COPD and emphysema. No acute focal process. D/ / 05/25/2019 10:44:35 Jai Herrera MD / rosalino Interpreting Provider: Jai Herrera MD
[2019-05-25] MEDS: Ipratropium/Albuterol Neb 3 ML IH SCH ×3 (16:26→23:49)
[2019-05-25] MEDS: methylPREDNISolone 125 MG/2 ML VIAL IVP SCH ×2 (17:31→21:22)
[2019-05-25] MEDS ORDERED: Insulin LISPRO 300 UNITS/3 ML VIAL SQ SCH (18:00)
[2019-05-25 19:12] LABS: Estimated Average Glucose 148 mg/dl
[2019-05-25] MEDS: (Aclidinium Bromide [Tudorza Pressair] 1 PUFF) PO SCH (19:57)
[2019-05-25] MEDS ORDERED: D5% in Water 1,000 ML IVC PRN (20:36)
[2019-05-25] MEDS ORDERED: *HR* Dextrose 50 % in Water (Syg) 50 ML SYRINGE IVP PRN (20:36)
[2019-05-25] MEDS ORDERED: NON-FORMULARY MEDICATION 1 EACH EACH (Quetiapine Fumarate [Seroquel] 400 MG) PO SCH (21:00)
[2019-05-25] MEDS: Insulin LISPRO 300 UNITS/3 ML VIAL SQ SCH (21:17)
[2019-05-25] MEDS: *HR* Warfarin 4 MG TABLET PO SCH (21:21)
[2019-05-25] MEDS: Budesonide/Formoterol 160/4.5 1 PUFF INH IH SCH (21:47)
[2019-05-26] MEDS: methylPREDNISolone 125 MG/2 ML VIAL IVP SCH ×3 (04:47→21:20)
[2019-05-26] MEDS: Ipratropium/Albuterol Neb 3 ML IH SCH ×6 (04:51→23:34)
[2019-05-26 05:56] LABS: Hematocrit 33.3 % (35.3-44.9); Hemoglobin 10.2 g/dL (11.5-15.4); Mean Corpuscular HGB Conc 30.6 g/dL (31.6-35.5); Mean Corpuscular Volume 101.2 fL (83.0-100.0); Platelet Count 253 K/mcL (140-400); Red Blood Count 3.29 M/mcL (3.82-4.97); Red Cell Distribution Width 13.2 % (11.5-14.5); White Blood Count 2.9 K/mcL (4.3-11.1)
[2019-05-26 06:01] LABS: INR 2.5
[2019-05-26 06:12] LABS: BUN/Creatinine Ratio 21 (6-26); Blood Urea Nitrogen 9 mg/dL (6-20); Calcium 9.7 mg/dL (8.6-10.3); Carbon Dioxide 37 mEq/L (23-29); Chloride 99 mEq/L (98-107); Glucose 173 mg/dL (70-105); Osmolality,Calculated 297 (280-300); Potassium 3.5 mEq/L (3.5-5.1); Sodium 142 mEq/L (136-145); eGFR For African Americans > 60 (> 60); eGFR For Non-African Americans > 60 (> 60)
[2019-05-26] MEDS: Budesonide/Formoterol 160/4.5 1 PUFF INH IH SCH ×2 (07:47→19:51)
[2019-05-26] MEDS ORDERED: *HR* Metformin 500 MG TABLET PO SCH (08:00)
[2019-05-26] MEDS: GlipiZIDE 5 MG TABLET PO SCH (08:59)
[2019-05-26] MEDS: Metoprolol XL (24 HR) Succ 50 MG TAB.ER.24H PO SCH (08:59)
[2019-05-26] MEDS: Insulin LISPRO 300 UNITS/3 ML VIAL SQ SCH ×4 (08:59→21:04)
[2019-05-26] MEDS: (Aclidinium Bromide [Tudorza Pressair] 1 PUFF) PO SCH ×2 (09:01→21:04)
[2019-05-26 09:13] LABS: Adenovirus Not Detected (Not Detect); Coronavirus 229E Not Detected (Not Detect); Coronavirus HKU1 Not Detected (Not Detect); Coronavirus NL63 Not Detected (Not Detect)
[2019-05-26 09:14] LABS: Bordetella Pertussis Not Detected (Not Detect); Chlamydophila pneumoniae Not Detected (Not Detect); Coronavirus OC43 Not Detected (Not Detect); Human Metapneumovirus Not Detected (Not Detect); Human Rhinovirus/Enterovirus Not Detected (Not Detect); Influenza A Subtype 2009 H1 Not Detected (Not Detect); Influenza A Untypeable Not Detected (Not Detect); Influenza B Not Detected (Not Detect); Mycoplasma pneumoniae Not Detected (Not Detect); Parainfluenza Virus 1 Not Detected (Not Detect); Parainfluenza Virus 2 Not Detected (Not Detect); Parainfluenza Virus 3 Not Detected (Not Detect); Parainfluenza Virus 4 Not Detected (Not Detect); Respiratory Syncytial Virus Not Detected (Not Detect)
--- NOTE | 2019-05-26 09:21 | Internal Med Progress Note ---
Date of Encounter: 05/26/19 Time of Encounter: 13:54 - Assessment and plan (1) Acute exacerbation of chronic obstructive airways disease Current Visit: Yes Status: Acute Assessment and plan: sHe was on BiPAP in the emergency room yesterday she has maintained her oxygen saturation on oxygen. We will continue Rocephin and Zithromax Solu-Medrol duo nebs., improved but not at baseline still with wheezing and hypoxia, not safe fo r d/c (2) Congenital heart disease in adult Current Visit: Yes Status: Acute Assessment and plan: She is maintaining her oxygen saturations on oxygen. She has not had any cardiac symptoms echo has been ordered (3) Depression Current Visit: Yes Status: Chronic Assessment and plan: Continue her home medication Qualifiers: Depression Type: major depressive disorder Major depression recurrence: recurrent Active/Remission status: currently active Major depression episode severity: unspecified Qualified Code(s): F33.9 - Major depressive disorder, recurrent, unspecified (4) DVT prophylaxis Current Visit: Yes Status: Acute Assessment and plan: coumadin and donna paredes (5) COPD (chronic obstructive pulmonary disease) Current Visit: Yes Status: Chronic Qualifiers: COPD type: COPD with acute exacerbation Qualified Code(s): J44.1 - Chronic obstructive pulmonary disease with (acute) exacerbation (6) History of lung cancer Current Visit: Yes Status: Acute (7) History of pulmonary embolus (PE) Current Visit: Yes Status: Acute Assessment and plan: on coumadin inr in range (8) Tobacco abuse counseling Current Visit: Yes Status: Acute (9) DM2 (diabetes mellitus, type 2) Current Visit: Yes Status: Acute Assessment and plan: started glipizide today since she will not take metformin. ssi and accuchecks, hga1c in range Qualifiers: Diabetes mellitus security risk analyst insulin use: without residential use Diabetes mellitus complication status: without complication Qualified Code(s): E11.9 - Type 2 diabetes mellitus without complications - Subjective Interval history: feels better today. less sob, got to bathroom did ok. dizzy better, still cough but better, no cp, no palp, no n/v, bowels ok, bladder. no fevr, no chills anxious to get home - Constitutional Vitals: Temp Pulse Resp BP Pulse Ox 97.5 F L 81 16 146/78 95 05/26/19 07:55 05/26/19 07:55 05/26/19 07:55 05/26/19 07:55 05/26/19 07:55 General appearance: Present: A&O X 3, no acute distress, answers questions appropriately - Head Head exam: Present: atraumatic, normocephalic - Respiratory Respiratory exam: Present: decreased breath sounds, prolonged expiratory phase, wheezes - Cardiovascular Cardiovascular exam: Present: RRR, systolic murmur - GI/Abdominal GI/Abdominal exam: Present: normal bowel sounds, soft, no peritoneal signs. Absent: distended, guarding, mass, tenderness - Extremities Exam Extremities exam: Present: normal capillary refill (clubbing of fingers), warm. Absent: pedal edema - Skin Skin exam: Present: dry, warm. Absent: rash Internal Medicine: Result - Labs CBC & Chem 7: 05/26/19 05:41 05/26/19 05:41 Labs: Short CBC 05/25/19 05/26/19 Range/Units 09:50 05:41 WBC 3.2 L 2.9 L (4.3-11.1) K/mcL Hgb 10.1 L 10.2 L (11.5-15.4) g/dL Hct 34.2 L 33.3 L (35.3-44.9) % Plt Count 256 253 (140-400) K/mcL Neutrophils # 1.9 (1.6-8.9) K/mcL BMP 05/25/19 05/26/19 09:50 05:41 Sodium 142 142 Potassium 3.1 L 3.5 Chloride 99 99 Carbon Dioxide 40 H* 37 H BUN 6 9 Creatinine 0.52 L 0.42 L Glucose 137 H 173 H Calcium 9.4 9.7 Liver Function 05/25/19 Range/Units 09:50 Total Bilirubin 0.3 (0.3-1.0) mg/dL Direct Bilirubin 0.1 (0.0-0.2) mg/dL AST 13 (13-39) Units/L ALT 14 (7-52) Units/L Alkaline Phosphatase 77 (34-104) Units/L Albumin 3.8 (3.5-5.7) g/dL - ABG Interpretation ABG results: ABG ABG pH 7.39 pH Units (7.32-7.45) 05/25/19 13:41 ABG pCO2 66 mmHg (35-45) H 05/25/19 13:41 ABG pO2 58 mmHg (85-104) L 05/25/19 13:41 ABG O2 Saturation 88 % (95-98) L 05/25/19 13:41 PT/INR, D-dimer PT 28.0 Seconds (9.4-12.1) H 05/26/19 05:41 D-Dimer < 215 ng/mLFEU (0-500) 05/25/19 09:50 - Impressions Impressions Chest X-Ray 05/25/19 10:05 IMPRESSION: Findings of COPD and emphysema. No acute focal process. D/ / 05/25/2019 10:44:35 Jai Herrera MD / [email or web address] Interpreting Provider: Jai Herrera MD Consult Discharge Plan - Plan Referrals: Cecy Sanchez, [employer] [Primary Care Provider] -
[2019-05-26 09:35] LABS: Estimated Average Glucose 148 mg/dl
[2019-05-26] MEDS: *HR* Warfarin 4 MG TABLET PO SCH (17:34)
[2019-05-26] MEDS ORDERED: *HR* Warfarin 4 MG TABLET PO SCH (18:00)
[2019-05-27 05:27] LABS: Hematocrit 34.5 % (35.3-44.9); Hemoglobin 10.5 g/dL (11.5-15.4); Immature Granulocytes % 0.6 % (0-4); Lymphocytes # 0.3 K/mcL (0.6-4.6); Mean Corpuscular HGB Conc 30.4 g/dL (31.6-35.5); Mean Corpuscular Hemoglobin 30.5 pg (28.0-33.3); Mean Corpuscular Volume 100.3 fL (83.0-100.0); Mean Platelet Volume 9.3 fL (9.4-12.4); Monocytes # 0.1 K/mcL (0.0-1.3); Platelet Count 306 K/mcL (140-400); Red Blood Count 3.44 M/mcL (3.82-4.97); Red Cell Distribution Width 13.6 % (11.5-14.5); Segmented Neutrophils % 94.4 %; White Blood Count 8.1 K/mcL (4.3-11.1)
[2019-05-27 05:32] LABS: Neutrophils # 7.7 K/mcL (1.6-8.9)
[2019-05-27 05:35] LABS: INR 2.9; Prothrombin Time 32.9 Seconds (9.4-12.1)
[2019-05-27] MEDS: Ipratropium/Albuterol Neb 3 ML IH SCH ×3 (05:44→11:15)
[2019-05-27 05:45] LABS: BUN/Creatinine Ratio 42 (6-26); Blood Urea Nitrogen 20 mg/dL (6-20); Calcium 9.8 mg/dL (8.6-10.3); Carbon Dioxide 39 mEq/L (23-29); Chloride 98 mEq/L (98-107); Glucose 221 mg/dL (70-105); Osmolality,Calculated 303 (280-300); Potassium 3.9 mEq/L (3.5-5.1); Sodium 142 mEq/L (136-145); eGFR For African Americans > 60 (> 60); eGFR For Non-African Americans > 60 (> 60)
[2019-05-27] MEDS: methylPREDNISolone 125 MG/2 ML VIAL IVP SCH ×2 (05:45→14:58)
[2019-05-27] MEDS: Budesonide/Formoterol 160/4.5 1 PUFF INH IH SCH (07:31)
[2019-05-27] MEDS: (Aclidinium Bromide [Tudorza Pressair] 1 PUFF) PO SCH (09:00)
[2019-05-27] MEDS ORDERED: Azithromycin 500 MG in 0.9 % Sodium Chloride 250 ML IVPB SCH (09:00)
[2019-05-27] MEDS: GlipiZIDE 5 MG TABLET PO SCH (09:00)
[2019-05-27] MEDS ORDERED: cefTRIAXone 1,000 MG in Water for inj. (sterile) 10 ML IVP SCH (09:00)
[2019-05-27] MEDS: Metoprolol XL (24 HR) Succ 50 MG TAB.ER.24H PO SCH (09:01)
[2019-05-27] MEDS: Insulin LISPRO 300 UNITS/3 ML VIAL SQ SCH ×2 (09:03→12:44)
[2019-05-27 11:52] VITALS: BP 147/79
--- NOTE | 2019-05-27 12:12 | Electrocardiograph Report ---
[address] [address] Test Date: 2019-05-25 Pat Name: Lillian Thomas Department: [facility] Room: 117 Gender: F Certified Medication Aide: : 1970 Requested By: Fabian Dubois Order Number: [id number] Reading MD: Jeramy Farmer Measurements Intervals [place] Rate: 102 P: 265 NV: 131 QRS: 161 QRSD: 76 T: 72 QT: 357 QTc: 465 Interpretive Statements SINUS TACHYCARDIA Ventricular premature complex LATE R WAVE PROGRESION Electronically Signed On 05-27-2019 12:11:16 EDT by Jeramy Farmer
--- NOTE | 2019-05-27 14:11 | Discharge Summary ---
Orders not resulted at time of discharge: Pending orders 05/25/19 09:50 Culture,Blood [BC] Stat Date of Encounter: 05/27/19 Time of Encounter: 13:00 - Discharge Diagnosis (1) Acute exacerbation of chronic obstructive airways disease Priority: Primary Status: Acute Comments: She initially came in on BiPAP she was weaned to her home dose of 3 L. She received Rocephin and Zithromax Solu-Medrol duo nebs. She did improve she was Dr. baseline she was able to ambulate in the halls with her oxygen she was anxious to get home we center home with Zithromax orally prednisone her nebulizers and her oxygen discussed at length she really needs to quit smoking if she does not she is ready had lung cancer she has had a low resection she had congenital heart surgery discussed that she is significantly decreasing her lifespan increasing her cancer risk and increasing her risk of intubation and due to her lung disease (2) Congenital heart disease in adult Priority: Secondary Status: Acute Comments: He had an echo that did not show any significant unexpected changes or critical changes. Have abnormal motion of the atrial septum shunting (3) Depression Priority: Secondary Status: Chronic Comments: no Changes were made to her home medication this was stable during her admission Qualifiers: Depression Type: major depressive disorder Major depression recurrence: recurrent Active/Remission status: currently active Major depression episode severity: unspecified Qualified Code(s): F33.9 - Major depressive disorder, recurrent, unspecified (4) DVT prophylaxis Priority: Secondary Status: Acute Comments: She was on Coumadin while she was here and CHAD paredes (5) COPD (chronic obstructive pulmonary disease) Priority: Secondary Status: Chronic Qualifiers: COPD type: COPD with acute exacerbation Qualified Code(s): J44.1 - Chronic obstructive pulmonary disease with (acute) exacerbation (6) History of lung cancer Priority: Secondary Status: Acute Comments: Discussed with this history of lung cancer she really needs to quit smoking (7) History of pulmonary embolus (PE) Priority: Secondary Status: Acute Comments: Remained therapeutic with her INR 2.3-2.9 discussed that when she is not outpatient on the Zithromax that this will interfere with the Coumadin that she is likely to have elevated levels she follows up Coumadin clinic she is coming in at the beginning of next week to repeat those levels. Discussed that she did not hold any medicines with her current INR of 2.9 but we can expect this to possibly get higher not currently having any bleeding (8) Tobacco abuse counseling Priority: Secondary Status: Acute Comments: Everyday discussed with her that she needs to quit smoking that she is increasing her risk for cancer she is early had lung cancer that she is increasing her transferred to intubation decreased quality of life since she is [place] on home oxygen. Discussed that she should never ever smoke with her oxygen on because of the fire risk/ramos (9) DM2 (diabetes mellitus, type 2) Priority: Secondary Status: Acute Comments: He refused to take her Coumadin due to the side effects I went ahead and stop that we had a glipizide to see if she tolerates that better her sugars were elevated while she was here hemoglobin A1c was in range she got sliding scale and Accu-Cheks will she was here on IV Solu-Medrol. Qualifiers: Diabetes mellitus [facility] insulin use: without [facility] use Diabetes mellitus complication status: without complication Qualified Code(s): E11.9 - Type 2 diabetes mellitus without complications Hospital course: Ms. Thomas is a 48 year old female With a past medical history of congenital heart disease COPD with frequent exacerbations tobacco abuse status post right lung lobectomy to [facility] for lung cancer who presented to the emergency room with shortness of breath coughing and wheezing. She was initially placed on BiPAP in the ER she was weaned down to her 3 L which is her usual she did have some CO2 retention she had repeat ABGs she had an ABG done an hour after she was taken off BiPAP she was stable she was admitted here she was given Rocephin and Zithromax Solu-Medrol duo nebs oxygen she was placed on telemetry. She did improve her lungs were clear with diminished breath sounds when she was discharged discussed that she really needs to quit smoking. She was sent home on prednisone and Zithromax duo nebs and her oxygen. She had a history of a PE she was therapeutic and her INR will she was here between 2.3-2.9 discussed that she should still continue her Coumadin discussed that and Zithromax does change her INR we will not make dosage adjustments and she is still currently in range she is to follow-up at the beginning the next week to have the INR appointment was made in the office for her. She was discharged home in a stable condition able to ambulate the halls with her oxygen. - Time Spent with Patient Total time spent providing and/or coordinating discharge services: - Discharge Medications Prescriptions: New Azithromycin 250 mg PO DAILY #4 tablet Buspirone HCl [Buspar] 15 mg PO BID PRN tablet PRN Reason: Anxiety PredniSONE [Deltasone] 60 mg PO DAILY #21 tablet Ipratropium/Albuterol Neb [Duoneb] 3 ml IH [id number] inhsol GlipiZIDE [Glucotrol] 10 mg PO 0800 #30 tablet Quetiapine Fumarate 400 mg PO HS tablet Metoprolol XL (24 HR) Succ [Toprol Xl] 50 mg PO DAILY tab.er.24h Continued Albuterol Sulfate [Ventolin Hfa] 2 puff IH Q4H PRN PRN Reason: Shortness Of Breath Baclofen [Lioresal] 10 mg PO TID Mometasone/Formoterol [Dulera 100 Mcg/5 Mcg Inhaler] 2 puff PO BID Aclidinium [place] [Tudorza Pressair] 1 puff PO BID Quetiapine Fumarate [Seroquel] 400 mg PO HS Warfarin [Coumadin] 4 mg PO DAILY Montelukast [Singulair] 10 mg PO DAILY Metoprolol Succinate [Toprol Xl] 50 mg PO DAILY Buspirone HCl [Buspar] 15 mg PO BID Discontinued Metformin HCl [Glucophage] 1,000 mg PO BID Home Medications: Quetiapine Fumarate [Seroquel] 400 mg PO HS 08/24/15 [History] Albuterol Sulfate [Ventolin Hfa] 2 puff IH Q4H PRN 03/21/17 [History] Warfarin [Coumadin] 4 mg PO DAILY 06/10/18 [History] Aclidinium [place] [Tudorza Pressair] 1 puff PO BID 01/25/19 [History] Baclofen [Lioresal] 10 mg PO TID 01/25/19 [History] Mometasone/Formoterol [Dulera 100 Mcg/5 Mcg Inhaler] 2 puff PO BID 01/25/19 [History] Buspirone HCl [Buspar] 15 mg PO BID 05/25/19 [History] Metoprolol Succinate [Toprol Xl] 50 mg PO DAILY 05/25/19 [History] Montelukast [Singulair] 10 mg PO DAILY 05/25/19 [History] Azithromycin 250 mg PO DAILY #4 tablet 05/27/19 [Rx] Buspirone HCl [Buspar] 15 mg PO BID PRN tablet 05/27/19 [Rx] GlipiZIDE [Glucotrol] 10 mg PO 0800 #30 tablet 05/27/19 [Rx] Ipratropium/Albuterol Neb [Duoneb] 3 ml IH [id number] inhsol 05/27/19 [Rx] Metoprolol XL (24 HR) Succ [Toprol Xl] 50 mg PO DAILY tab.er.24h 05/27/19 [Rx] PredniSONE [Deltasone] 60 mg PO DAILY #21 tablet 05/27/19 [Rx] Quetiapine Fumarate 400 mg PO HS tablet 05/27/19 [Rx] Allergies/Adverse Reactions: Allergy/AdvReac Type Severity Reaction Status Date / Time prednisone AdvReac Intermediate See Verified 01/25/19 12:06 Comments doxycycline AdvReac Nausea Verified 01/25/19 12:06 Penicillins AdvReac See Verified 01/25/19 12:06 Comments Date of admission: 05/25/19 14:37 Primary care physician: Cecy Sanchez CNP - Constitutional Vitals: Temp Pulse Resp BP Pulse Ox 98.4 F 70 16 147/79 96 05/27/19 11:50 05/27/19 11:50 05/27/19 11:50 05/27/19 11:50 05/27/19 11:50 General appearance: Present: A&O X 3, no acute distress, answers questions appropriately - Head Head exam: Present: atraumatic, normocephalic - Neck Neck exam general surgery: Present: trachea midline. Absent: lymphadenopathy - Respiratory Respiratory exam: Present: CTAB. Absent: decreased breath sounds - Cardiovascular Cardiovascular exam: Present: RRR, systolic murmur - GI/Abdominal GI/Abdominal exam: Present: normal bowel sounds, soft, no peritoneal signs. Absent: distended, guarding, mass, tenderness - Extremities Exam Extremities exam: Absent: cyanotic, mottling (clubbing of finger, chad hose bilat), pedal edema - Skin Skin exam: Present: dry, warm. Absent: rash - Patient Status Disposition: Home, Self-Care Condition: Fair Functional capacity at discharge: independent ambulation Overall status at discharge: patient is progressing back to baseline - Discharge Instructions Follow Up With: Cecy Sanchez, [facility] [Primary Care Provider] - 06/01/19 11:00 am - Diet and Activity Activity: increase activity as tolerated, wear oxygen at all times Diet: diabetic diet, low fat, low cholesterol
== END 2019-05-27 15:45 | disposition home or self-care (01) ==
LOC: EMEROOGRE 09:36 → INPGRE 09:36
PROVIDERS: ADMIT Family Medicine; ATTEND Family Medicine

== ENCOUNTER 2019-10-04 03:52 | Observation (INO) ==
[2019-10-04] MEDS ORDERED: Ketorolac 30 MG/ML VIAL IVP ONE (04:27)
[2019-10-04] MEDS ORDERED: Ipratropium/Albuterol Neb 3 ML IH ONE (04:27)
[2019-10-04 04:49] LABS: Basophils % 0.1 %; Eosinophils % 0.1 %; Hematocrit 37.6 % (35.3-44.9); Hemoglobin 11.5 g/dL (11.5-15.4); Immature Granulocytes % 0.6 % (0-4); Lymphocytes # 1.4 K/mcL (0.6-4.6); Lymphocytes % 8.7 %; Mean Corpuscular HGB Conc 30.6 g/dL (31.6-35.5); Mean Corpuscular Hemoglobin 31.9 pg (28.0-33.3); Mean Corpuscular Volume 104.2 fL (83.0-100.0); Mean Platelet Volume 8.9 fL (9.4-12.4); Monocytes # 1.2 K/mcL (0.0-1.3); Monocytes % 7.2 %; Neutrophils # 13.6 K/mcL (1.6-8.9); Platelet Count 319 K/mcL (140-400); Red Blood Count 3.61 M/mcL (3.82-4.97); Red Cell Distribution Width 14.7 % (11.5-14.5); Segmented Neutrophils % 83.3 %; White Blood Count 16.3 K/mcL (4.3-11.1)
[2019-10-04 04:54] LABS: INR 1.5; Prothrombin Time 16.5 Seconds (9.4-12.1)
[2019-10-04 05:05] LABS: Troponin I 0.03 ng/mL (< 0.04)
[2019-10-04 05:19] LABS: BUN/Creatinine Ratio 27 (6-26); Blood Urea Nitrogen 19 mg/dL (6-20); Calcium 9.7 mg/dL (8.6-10.3); Carbon Dioxide 39 mEq/L (23-29); Chloride 99 mEq/L (98-107); Glucose 216 mg/dL (70-105); Osmolality,Calculated 303 (280-300); Potassium 3.4 mEq/L (3.5-5.1); Sodium 142 mEq/L (136-145); eGFR For African Americans > 60 (> 60); eGFR For Non-African Americans > 60 (> 60)
[2019-10-04] MEDS ORDERED: Naloxone 0.4 MG/ML INJ IVP PRN ×2 (05:54→06:49)
[2019-10-04] MEDS ORDERED: Dextrose Gel 15 GM/37.5 ML TUBE PO PRN ×4 (06:12→06:49)
[2019-10-04] MEDS ORDERED: D5% in Water 1,000 ML IVC PRN ×2 (06:12→06:49)
[2019-10-04] MEDS ORDERED: *HR* Dextrose 50 % in Water (Syg) 50 ML SYRINGE IVP PRN (06:12)
[2019-10-04] MEDS ORDERED: *HR* Dextrose 50 % in Water (Vial) 50 ML VIAL IVP PRN (06:49)
[2019-10-04] MEDS ORDERED: Ipratropium/Albuterol Neb 3 ML ONE (07:04)
[2019-10-04] MEDS: Ipratropium/Albuterol Neb 3 ML IH SCH ×5 (07:13→23:02)
[2019-10-04] MEDS: Tiotropium 18 MCG inhalation IH SCH (07:29)
[2019-10-04] MEDS ORDERED: Insulin LISPRO 300 UNITS/3 ML VIAL SQ SCH ×2 (07:30→21:00)
[2019-10-04] MEDS: Budesonide/Formoterol 160/4.5 1 PUFF INH IH SCH ×2 (07:30→20:01)
[2019-10-04] MEDS ORDERED: MethylPREDNISolone 40 MG/ML VIAL IVP SCH (08:00)
[2019-10-04] MEDS ORDERED: Ipratropium/Albuterol Neb 3 ML IH SCH (08:00)
[2019-10-04] MEDS: *HR* Metformin 500 MG TABLET PO SCH ×2 (08:03→16:54)
[2019-10-04] MEDS: Baclofen 10 MG TABLET PO SCH ×3 (08:03→22:15)
[2019-10-04] MEDS: Insulin LISPRO 300 UNITS/3 ML VIAL SQ SCH ×4 (08:04→22:15)
[2019-10-04] MEDS: MethylPREDNISolone 40 MG/ML VIAL IVP SCH ×3 (08:04→23:18)
[2019-10-04] MEDS ORDERED: NON-FORMULARY MEDICATION 1 EACH EACH (Fluticasone/Umeclidin/Vilanter [Trelegy Ellipta 100- IH SCH (09:00)
[2019-10-04] MEDS ORDERED: levoFLOXacin 500 MG TABLET PO SCH (09:00)
[2019-10-04] MEDS ORDERED: Metoprolol XL (24 HR) Succ 50 MG TAB.ER.24H PO SCH (09:00)
[2019-10-04] MEDS ORDERED: *HR* Enoxaparin 60 MG/0.6 ML SYRINGE SQ ONE (14:14)
[2019-10-04] MEDS ORDERED: Doxycycline 100 MG in 0.9 % Sodium Chloride Mini Bag 100 ML IVPB SCH (18:00)
[2019-10-04] MEDS ORDERED: *HR* Warfarin 4 MG TABLET PO SCH (18:00)
[2019-10-04] MEDS: Nicotine 21 MG PATCH.TD24 TD SCH (18:26)
[2019-10-04] MEDS: Azithromycin 500 MG in 0.9 % Sodium Chloride 250 ML IVPB SCH (18:27)
[2019-10-04] MEDS: QUEtiapine Fumarate 100 MG TABLET PO SCH (22:13)
[2019-10-04] MEDS ORDERED: *HR* Promethazine 25 MG/ML VIAL IVP PRN (22:30)
[2019-10-05 05:34] LABS: Basophils % 0.1 %; Hematocrit 34.9 % (35.3-44.9); Hemoglobin 10.5 g/dL (11.5-15.4); Immature Granulocytes % 0.7 % (0-4); Lymphocytes # 0.5 K/mcL (0.6-4.6); Lymphocytes % 5.6 %; Mean Corpuscular HGB Conc 30.1 g/dL (31.6-35.5); Mean Corpuscular Hemoglobin 31.4 pg (28.0-33.3); Mean Corpuscular Volume 104.5 fL (83.0-100.0); Mean Platelet Volume 9.3 fL (9.4-12.4); Monocytes # 0.3 K/mcL (0.0-1.3); Monocytes % 3.1 %; Neutrophils # 8.2 K/mcL (1.6-8.9); Platelet Count 277 K/mcL (140-400); Red Blood Count 3.34 M/mcL (3.82-4.97); Red Cell Distribution Width 14.6 % (11.5-14.5); Segmented Neutrophils % 90.5 %
[2019-10-05 05:39] LABS: INR 2.3; Prothrombin Time 25.7 Seconds (9.4-12.1)
[2019-10-05 05:51] LABS: BUN/Creatinine Ratio 31 (6-26); Blood Urea Nitrogen 19 mg/dL (6-20); Calcium 9.8 mg/dL (8.6-10.3); Carbon Dioxide 38 mEq/L (23-29); Chloride 98 mEq/L (98-107); Glucose 232 mg/dL (70-105); Osmolality,Calculated 300 (280-300); Potassium 4.2 mEq/L (3.5-5.1); Sodium 140 mEq/L (136-145); eGFR For African Americans > 60 (> 60); eGFR For Non-African Americans > 60 (> 60)
[2019-10-05] MEDS: Ipratropium/Albuterol Neb 3 ML IH SCH ×5 (07:28→23:37)
[2019-10-05] MEDS: Tiotropium 18 MCG inhalation IH SCH (07:33)
[2019-10-05] MEDS: Budesonide/Formoterol 160/4.5 1 PUFF INH IH SCH ×2 (07:33→19:59)
[2019-10-05] MEDS: MethylPREDNISolone 40 MG/ML VIAL IVP SCH ×2 (09:05→16:46)
[2019-10-05] MEDS: Insulin LISPRO 300 UNITS/3 ML VIAL SQ SCH ×4 (09:06→21:27)
[2019-10-05] MEDS: *HR* Metformin 500 MG TABLET PO SCH ×2 (09:09→16:46)
[2019-10-05] MEDS: Nicotine 21 MG PATCH.TD24 TD SCH (09:10)
[2019-10-05] MEDS: Baclofen 10 MG TABLET PO SCH ×3 (09:10→21:21)
[2019-10-05] MEDS: Metoprolol XL (24 HR) Succ 50 MG TAB.ER.24H PO SCH (09:17)
[2019-10-05] MEDS: Azithromycin 500 MG in 0.9 % Sodium Chloride 250 ML IVPB SCH (16:53)
[2019-10-05] MEDS ORDERED: Warfarin perPT PO PRN (18:00)
[2019-10-05] MEDS: QUEtiapine Fumarate 100 MG TABLET PO SCH (21:21)
[2019-10-06] MEDS: MethylPREDNISolone 40 MG/ML VIAL IVP SCH ×3 (00:24→17:27)
[2019-10-06] MEDS: Ipratropium/Albuterol Neb 3 ML IH SCH ×5 (03:43→21:16)
[2019-10-06 05:48] LABS: Prothrombin Time 23.1 Seconds (9.4-12.1)
[2019-10-06] MEDS: Insulin LISPRO 300 UNITS/3 ML VIAL SQ SCH ×4 (08:04→21:15)
[2019-10-06] MEDS: *HR* Metformin 500 MG TABLET PO SCH ×2 (08:04→17:27)
[2019-10-06] MEDS: Metoprolol XL (24 HR) Succ 50 MG TAB.ER.24H PO SCH (08:04)
[2019-10-06] MEDS: Nicotine 21 MG PATCH.TD24 TD SCH (08:05)
[2019-10-06] MEDS: Baclofen 10 MG TABLET PO SCH ×3 (08:05→21:15)
[2019-10-06] MEDS: Budesonide/Formoterol 160/4.5 1 PUFF INH IH SCH ×2 (09:27→21:15)
[2019-10-06] MEDS: Tiotropium 18 MCG inhalation IH SCH (09:28)
[2019-10-06] MEDS: Azithromycin 500 MG in 0.9 % Sodium Chloride 250 ML IVPB SCH (17:27)
[2019-10-06] MEDS ORDERED: *HR* Warfarin 4 MG TABLET PO ONE (18:00)
[2019-10-06] MEDS: QUEtiapine Fumarate 100 MG TABLET PO SCH (21:14)
[2019-10-07] MEDS: MethylPREDNISolone 40 MG/ML VIAL IVP SCH ×2 (01:07→08:14)
[2019-10-07] MEDS: Ipratropium/Albuterol Neb 3 ML IH SCH ×4 (01:07→11:42)
[2019-10-07 06:18] LABS: INR 2.1; Prothrombin Time 23.7 Seconds (9.4-12.1)
[2019-10-07] MEDS: Budesonide/Formoterol 160/4.5 1 PUFF INH IH SCH (07:52)
[2019-10-07] MEDS: Tiotropium 18 MCG inhalation IH SCH (07:53)
[2019-10-07] MEDS: Insulin LISPRO 300 UNITS/3 ML VIAL SQ SCH ×2 (08:10→12:00)
[2019-10-07] MEDS: Metoprolol XL (24 HR) Succ 50 MG TAB.ER.24H PO SCH (08:12)
[2019-10-07] MEDS: Nicotine 21 MG PATCH.TD24 TD SCH (08:13)
[2019-10-07] MEDS: *HR* Metformin 500 MG TABLET PO SCH (08:13)
[2019-10-07] MEDS: Baclofen 10 MG TABLET PO SCH (08:13)
[2019-10-07 12:09] VITALS: BP 168/82
[2019-10-07] MEDS ORDERED: *HR* Warfarin 3 MG TABLET PO ONE (18:00)
== END 2019-10-07 14:58 | disposition home or self-care (01) | DRG 191 ==
LOC: INPGRE 03:52 → EMEROOGRE 03:52 → INPGRE 06:50
PROVIDERS: ADMIT Family Medicine; ATTEND Family Medicine

== ENCOUNTER 2019-12-16 14:53 | Inpatient (IN) ==
[2019-12-16] MEDS ORDERED: methylPREDNISolone 125 MG/2 ML VIAL IVP ONE (15:05)
[2019-12-16] MEDS ORDERED: Levalbuterol Neb 1.25 MG/3 ML IH ONE ×2 (15:06)
[2019-12-16] MEDS ORDERED: Ipratropium/Albuterol Neb 3 ML IH ONE ×2 (15:06→16:57)
[2019-12-16 15:17] LABS: Basophils # 0.1 K/mcL (0.0-0.2); Basophils % 0.4 %; Hematocrit 43.3 % (35.3-44.9); Hemoglobin 13.8 g/dL (11.5-15.4); Immature Granulocytes % 1.3 % (0-4); Lymphocytes # 0.8 K/mcL (0.6-4.6); Lymphocytes % 5.4 %; Mean Corpuscular HGB Conc 31.9 g/dL (31.6-35.5); Mean Corpuscular Volume 100.5 fL (83.0-100.0); Mean Platelet Volume 9.5 fL (9.4-12.4); Monocytes # 0.3 K/mcL (0.0-1.3); Monocytes % 1.8 %; Neutrophils # 12.9 K/mcL (1.6-8.9); Nucleated Red Blood Cells 0.2 /100 WBC (0); Platelet Count 390 K/mcL (140-400); Red Blood Count 4.31 M/mcL (3.82-4.97); Segmented Neutrophils % 91.1 %; White Blood Count 14.2 K/mcL (4.3-11.1)
[2019-12-16 15:23] LABS: ABG Base Excess 13 mEq/L (-2 to 3); ABG HCO3 43 mEq/L (21-27); ABG Oxygen Saturation 100 % (95-98); ABG PCO2 73 mmHg (35-45); ABG PH 7.38 pH Units (7.32-7.45); ABG PO2 377 mmHg (85-104); ABG TCO2 45 mEq/L (20-26)
[2019-12-16 15:29] LABS: Activated Partial Thrombo Time 47.7 Seconds (26.0-36.0)
[2019-12-16 15:30] LABS: Alanine Aminotransferase 14 Units/L (7-52); Albumin 4.8 g/dL (3.5-5.7); Albumin/Globulin Ratio 1.8 (1.1-2.2); Alkaline Phosphatase 68 Units/L (34-104); Aspartate Amino Transferase 18 Units/L (13-39); BUN/Creatinine Ratio 22 (6-26); Bilirubin,Direct 0.1 mg/dL (0.0-0.2); Bilirubin,Indirect 0.3 mg/dL (0.0-1.0); Bilirubin,Total 0.4 mg/dL (0.3-1.0); Blood Urea Nitrogen 22 mg/dL (6-20); Calcium 9.6 mg/dL (8.6-10.3); Carbon Dioxide 37 mEq/L (23-29); Chloride 82 mEq/L (98-107); Globulin 2.6 g/dL (2.4-3.5); Glucose 372 mg/dL (70-105); Osmolality,Calculated 297 (280-300); Potassium 4.1 mEq/L (3.5-5.1); Sodium 134 mEq/L (136-145); Total Protein 7.4 g/dL (6.4-8.9); eGFR For African Americans > 60 (> 60); eGFR For Non-African Americans 58 (> 60)
[2019-12-16] MEDS ORDERED: *HR* Metoprolol 5 MG/5 ML VIAL IVP ONE (15:31)
[2019-12-16 15:34] LABS: Troponin I 0.03 ng/mL (< 0.04)
[2019-12-16 15:43] LABS: INR 4.6; Prothrombin Time 52.6 Seconds (9.4-12.1)
[2019-12-16] MEDS ORDERED: Naloxone 0.4 MG/ML INJ IVP PRN (16:57)
[2019-12-16] MEDS ORDERED: Baclofen 10 MG TABLET PO PRN (16:57)
[2019-12-16] MEDS ORDERED: NON-FORMULARY MEDICATION 1 EACH EACH (Alendronate Sodium 70 MG) PO SCH (17:00)
[2019-12-16] MEDS ORDERED: Ergocalciferol (VIT D2) 50,000 UNIT (1.25MG) CAP PO SCH (17:00)
[2019-12-16] MEDS ORDERED: Insulin Regular, Human 100 UNIT/ML SQ ONE ×2 (17:01→17:02)
[2019-12-16] MEDS ORDERED: Albuterol 2.5 MG/3 ML NEBULIZER IH PRN (17:33)
[2019-12-16] MEDS ORDERED: *HR* Dextrose 50 % in Water (Syg) 50 ML SYRINGE IVP PRN (17:41)
[2019-12-16] MEDS ORDERED: D5% in Water 1,000 ML IVC PRN (17:41)
[2019-12-16] MEDS ORDERED: Dextrose Gel 15 GM/37.5 ML TUBE PO PRN ×2 (17:41)
[2019-12-16] MEDS ORDERED: MethylPREDNISolone 40 MG/ML VIAL IVP SCH (18:00)
[2019-12-16] MEDS: Insulin LISPRO 300 UNITS/3 ML VIAL SQ SCH (18:26)
[2019-12-16] MEDS: *HR* Metformin 500 MG TABLET PO SCH (18:27)
[2019-12-16] MEDS: cefTRIAXone 2,000 MG in Water for inj. (sterile) 20 ML IVP SCH (18:28)
[2019-12-16] MEDS: Azithromycin 500 MG in D5% in Water 250 ML IVPB SCH (18:43)
[2019-12-16] MEDS: Nystatin SUSP 5 ML UD.LIQ PO SCH ×2 (18:44→21:35)
[2019-12-16] MEDS ORDERED: 0.9 % Sodium Chloride 1,000 ML IVC ONE ×2 (18:45→22:10)
[2019-12-16] MEDS: Budesonide/Formoterol 160/4.5 1 PUFF INH IH SCH (19:57)
[2019-12-16] MEDS: Ipratropium/Albuterol Neb 3 ML IH SCH (19:57)
[2019-12-16] MEDS ORDERED: Ipratropium/Albuterol Neb 3 ML IH SCH (20:00)
[2019-12-16] MEDS ORDERED: Metoprolol XL (24 HR) Succ 50 MG TAB.ER.24H PO SCH (21:00)
[2019-12-16] MEDS ORDERED: NON-FORMULARY MEDICATION 1 EACH EACH (Quetiapine Fumarate 400 MG) PO SCH (21:00)
[2019-12-16] MEDS ORDERED: Furosemide 20 MG TABLET PO SCH (21:00)
[2019-12-16] MEDS ORDERED: QUEtiapine Fumarate 100 MG, QUEtiapine Fumarate 300 MG PO SCH ×2 (21:00)
[2019-12-16] MEDS ORDERED: QUEtiapine Fumarate 100 MG TABLET PO SCH (21:00)
[2019-12-16] MEDS: MethylPREDNISolone 40 MG/ML VIAL IVP SCH (22:35)
[2019-12-17 00:58] LABS: INR 3.7; Prothrombin Time 42.4 Seconds (9.4-12.1)
[2019-12-17 01:03] LABS: Basophils % 0.3 %; Hematocrit 35.4 % (35.3-44.9); Hemoglobin 11.4 g/dL (11.5-15.4); Immature Granulocytes % 1.8 % (0-4); Lymphocytes # 0.6 K/mcL (0.6-4.6); Lymphocytes % 5.8 %; Mean Corpuscular HGB Conc 32.2 g/dL (31.6-35.5); Mean Corpuscular Hemoglobin 31.9 pg (28.0-33.3); Mean Corpuscular Volume 99.2 fL (83.0-100.0); Mean Platelet Volume 9.3 fL (9.4-12.4); Monocytes # 0.3 K/mcL (0.0-1.3); Monocytes % 2.4 %; Neutrophils # 9.4 K/mcL (1.6-8.9); Nucleated Red Blood Cells 0.2 /100 WBC (0); Platelet Count 268 K/mcL (140-400); Red Blood Count 3.57 M/mcL (3.82-4.97); Red Cell Distribution Width 12.8 % (11.5-14.5); Segmented Neutrophils % 89.7 %; White Blood Count 10.5 K/mcL (4.3-11.1)
[2019-12-17 01:37] LABS: BUN/Creatinine Ratio 30 (6-26); Blood Urea Nitrogen 25 mg/dL (6-20); Calcium 9.2 mg/dL (8.6-10.3); Carbon Dioxide 40 mEq/L (23-29); Chloride 88 mEq/L (98-107); Glucose 147 mg/dL (70-105); Osmolality,Calculated 293 (280-300); Potassium 3.5 mEq/L (3.5-5.1); Sodium 138 mEq/L (136-145); eGFR For African Americans > 60 (> 60); eGFR For Non-African Americans > 60 (> 60)
[2019-12-17] MEDS: Ipratropium/Albuterol Neb 3 ML IH SCH ×6 (01:58→20:04)
[2019-12-17] MEDS: 0.9 % Sodium Chloride 1,000 ML IVC SCH ×4 (06:30→15:51)
[2019-12-17] MEDS: MethylPREDNISolone 40 MG/ML VIAL IVP SCH ×3 (06:34→23:04)
[2019-12-17] MEDS: Budesonide/Formoterol 160/4.5 1 PUFF INH IH SCH ×2 (07:19→20:05)
[2019-12-17] MEDS: Nystatin SUSP 5 ML UD.LIQ PO SCH ×4 (08:57→20:41)
[2019-12-17] MEDS: *HR* Metformin 500 MG TABLET PO SCH ×3 (08:59→17:32)
[2019-12-17] MEDS ORDERED: Furosemide 20 MG TABLET PO SCH (09:00)
[2019-12-17] MEDS: Furosemide 20 MG TABLET PO SCH (09:00)
[2019-12-17] MEDS ORDERED: Metoprolol XL (24 HR) Succ 50 MG TAB.ER.24H PO SCH ×3 (09:00)
[2019-12-17] MEDS: Azithromycin 500 MG in D5% in Water 250 ML IVPB SCH (09:04)
[2019-12-17] MEDS: Insulin LISPRO 300 UNITS/3 ML VIAL SQ SCH ×3 (09:16→17:05)
[2019-12-17] MEDS ORDERED: Tiotropium 18 MCG inhalation IH SCH ×2 (10:00)
[2019-12-17] MEDS: cefTRIAXone 2,000 MG in Water for inj. (sterile) 20 ML IVP SCH (17:33)
[2019-12-17] MEDS ORDERED: Acetaminophen 325 MG TABLET PO PRN (17:55)
[2019-12-17] MEDS ORDERED: Warfarin perPT PO PRN ×2 (18:00)
[2019-12-17] MEDS ORDERED: *HR* Warfarin 2 MG TABLET PO ONE (18:00)
[2019-12-17] MEDS: QUEtiapine Fumarate 100 MG TABLET PO SCH (20:41)
[2019-12-17] MEDS: Metoprolol XL (24 HR) Succ 50 MG TAB.ER.24H PO SCH (20:42)
[2019-12-18] MEDS: Ipratropium/Albuterol Neb 3 ML IH SCH ×7 (00:06→23:41)
[2019-12-18] MEDS: 0.9 % Sodium Chloride 1,000 ML IVC SCH ×3 (00:11→18:15)
[2019-12-18 05:56] LABS: Basophils % 0.1 %; Hematocrit 29.9 % (35.3-44.9); Hemoglobin 9.6 g/dL (11.5-15.4); Immature Granulocytes % 0.7 % (0-4); Lymphocytes # 0.5 K/mcL (0.6-4.6); Lymphocytes % 4.4 %; Mean Corpuscular HGB Conc 32.1 g/dL (31.6-35.5); Mean Corpuscular Hemoglobin 32.3 pg (28.0-33.3); Mean Corpuscular Volume 100.7 fL (83.0-100.0); Mean Platelet Volume 9.3 fL (9.4-12.4); Monocytes # 0.3 K/mcL (0.0-1.3); Monocytes % 2.3 %; Neutrophils # 11.3 K/mcL (1.6-8.9); Platelet Count 238 K/mcL (140-400); Red Blood Count 2.97 M/mcL (3.82-4.97); Red Cell Distribution Width 12.9 % (11.5-14.5); Segmented Neutrophils % 92.5 %; White Blood Count 12.2 K/mcL (4.3-11.1)
[2019-12-18 06:16] LABS: INR 1.5; Prothrombin Time 17.3 Seconds (9.4-12.1)
[2019-12-18 06:27] LABS: BUN/Creatinine Ratio 51 (6-26); Blood Urea Nitrogen 26 mg/dL (6-20); Calcium 7.5 mg/dL (8.6-10.3); Carbon Dioxide 32 mEq/L (23-29); Chloride 98 mEq/L (98-107); Glucose 234 mg/dL (70-105); Osmolality,Calculated 296 (280-300); Potassium 3.7 mEq/L (3.5-5.1); Sodium 137 mEq/L (136-145); eGFR For African Americans > 60 (> 60); eGFR For Non-African Americans > 60 (> 60)
[2019-12-18] MEDS: MethylPREDNISolone 40 MG/ML VIAL IVP SCH ×2 (06:36→15:18)
[2019-12-18] MEDS: Budesonide/Formoterol 160/4.5 1 PUFF INH IH SCH ×2 (07:43→20:41)
[2019-12-18] MEDS: Nystatin SUSP 5 ML UD.LIQ PO SCH ×4 (08:30→20:42)
[2019-12-18] MEDS: Furosemide 20 MG TABLET PO SCH (08:31)
[2019-12-18] MEDS: Azithromycin 500 MG in D5% in Water 250 ML IVPB SCH (08:31)
[2019-12-18] MEDS: *HR* Metformin 500 MG TABLET PO SCH ×2 (08:31→17:44)
[2019-12-18] MEDS: Insulin LISPRO 300 UNITS/3 ML VIAL SQ SCH ×3 (08:37→16:13)
[2019-12-18] MEDS ORDERED: *HR* Warfarin 3 MG TABLET PO ONE (18:00)
[2019-12-18] MEDS: *HR* Enoxaparin 60 MG/0.6 ML SYRINGE SQ SCH (18:33)
[2019-12-18] MEDS: QUEtiapine Fumarate 100 MG TABLET PO SCH (20:38)
[2019-12-18] MEDS: Metoprolol XL (24 HR) Succ 50 MG TAB.ER.24H PO SCH (20:39)
[2019-12-19 05:44] LABS: Basophils % 0.1 %; Hematocrit 30.1 % (35.3-44.9); Hemoglobin 9.7 g/dL (11.5-15.4); Immature Granulocytes % 1.1 % (0-4); Lymphocytes # 0.9 K/mcL (0.6-4.6); Lymphocytes % 8.7 %; Mean Corpuscular HGB Conc 32.2 g/dL (31.6-35.5); Mean Corpuscular Hemoglobin 32.1 pg (28.0-33.3); Mean Corpuscular Volume 99.7 fL (83.0-100.0); Mean Platelet Volume 9.3 fL (9.4-12.4); Monocytes # 0.6 K/mcL (0.0-1.3); Monocytes % 5.6 %; Neutrophils # 8.8 K/mcL (1.6-8.9); Platelet Count 270 K/mcL (140-400); Red Blood Count 3.02 M/mcL (3.82-4.97); Red Cell Distribution Width 12.8 % (11.5-14.5); Segmented Neutrophils % 84.5 %; White Blood Count 10.5 K/mcL (4.3-11.1)
[2019-12-19 05:50] LABS: INR 1.3
[2019-12-19] MEDS: *HR* Enoxaparin 60 MG/0.6 ML SYRINGE SQ SCH ×2 (06:00→13:55)
[2019-12-19] MEDS: Ipratropium/Albuterol Neb 3 ML IH SCH ×3 (06:04→11:23)
[2019-12-19 07:06] VITALS: BP 121/82
[2019-12-19] MEDS: Budesonide/Formoterol 160/4.5 1 PUFF INH IH SCH (07:48)
[2019-12-19] MEDS: Furosemide 20 MG TABLET PO SCH (08:15)
[2019-12-19] MEDS: *HR* Metformin 500 MG TABLET PO SCH (08:15)
[2019-12-19] MEDS: Azithromycin 500 MG in D5% in Water 250 ML IVPB SCH (08:16)
[2019-12-19] MEDS: Nystatin SUSP 5 ML UD.LIQ PO SCH (08:16)
[2019-12-19] MEDS: Insulin LISPRO 300 UNITS/3 ML VIAL SQ SCH ×2 (08:21→11:58)
[2019-12-19] MEDS ORDERED: methylPREDNISolone 125 MG/2 ML VIAL IVP SCH (09:00)
[2019-12-19] MEDS ORDERED: *HR* Warfarin 4 MG TABLET PO ONE (18:00)
== END 2019-12-19 14:00 | disposition home or self-care (01) ==
LOC: EMEROOGRE 14:53 → INPGRE 17:02 → INTOOBSV 17:02 → INPGRE 17:52
PROVIDERS: ADMIT Family Medicine; ATTEND Family Medicine

== ENCOUNTER 2020-02-22 01:44 | Inpatient (IN) ==
[2020-02-22] MEDS ORDERED: methylPREDNISolone 125 MG/2 ML VIAL IVP ONE (02:00)
[2020-02-22] MEDS ORDERED: levoFLOXacin 750 MG/150 ML 750 MG/150 ML BAG IVPB ONE (02:00)
[2020-02-22] MEDS ORDERED: Levalbuterol Neb 1.25 MG/3 ML IH ONE ×2 (02:02→02:30)
[2020-02-22] MEDS ORDERED: Ipratropium Neb 0.5 MG NEBULIZER IH ONE (02:03)
[2020-02-22] MEDS ORDERED: Vancomycin 1,000 MG in D5% in Water 250 ML IVPB ONE (02:08)
[2020-02-22] MEDS ORDERED: 0.9 % Sodium Chloride 1,000 ML IVC SCH (02:15)
[2020-02-22 02:18] LABS: Eosinophils # 0.1 K/mcL (0.0-0.6); Eosinophils % 0.9 %; Hematocrit 28.6 % (35.3-44.9); Hemoglobin 8.8 g/dL (11.5-15.4); Immature Granulocytes % 0.4 % (0-4); Lymphocytes # 1.4 K/mcL (0.6-4.6); Lymphocytes % 17.9 %; Mean Corpuscular HGB Conc 30.8 g/dL (31.6-35.5); Mean Corpuscular Hemoglobin 31.7 pg (28.0-33.3); Mean Corpuscular Volume 102.9 fL (83.0-100.0); Mean Platelet Volume 8.9 fL (9.4-12.4); Monocytes # 0.6 K/mcL (0.0-1.3); Monocytes % 7.4 %; Neutrophils # 5.6 K/mcL (1.6-8.9); Platelet Count 410 K/mcL (140-400); Red Blood Count 2.78 M/mcL (3.82-4.97); Red Cell Distribution Width 14.6 % (11.5-14.5); Segmented Neutrophils % 73.4 %; White Blood Count 7.6 K/mcL (4.3-11.1)
[2020-02-22 02:22] LABS: Prothrombin Time 22.4 Seconds (9.4-12.1)
[2020-02-22 02:30] LABS: VBG HCO3 40 mEq/L (21-27); VBG PCO2 58 mmHg (41-51); VBG PH 7.44 pH Units (7.32-7.42); VBG PO2 26 mmHg (25-50)
[2020-02-22] MEDS: Levalbuterol Neb 1.25 MG/3 ML IH ONE (02:31)
[2020-02-22 02:32] LABS: Troponin I 0.03 ng/mL (< 0.04)
[2020-02-22 02:34] LABS: Albumin 3.4 g/dL (3.5-5.7); Albumin/Globulin Ratio 1.1 (1.1-2.2); Bilirubin,Indirect 0.2 mg/dL (0.0-1.0); Bilirubin,Total 0.2 mg/dL (0.3-1.0); Globulin 3.1 g/dL (2.4-3.5); Total Protein 6.5 g/dL (6.4-8.9)
[2020-02-22 02:46] LABS: Chloride 85 mEq/L (98-107); Potassium 2.9 mEq/L (3.5-5.1); Sodium 138 mEq/L (136-145)
[2020-02-22 02:48] LABS: BUN/Creatinine Ratio 17 (6-26); Blood Urea Nitrogen 11 mg/dL (6-20); Calcium 9.5 mg/dL (8.6-10.3); Carbon Dioxide > 45 mEq/L (23-29); Glucose 217 mg/dL (70-105); Osmolality,Calculated 292 (280-300); eGFR For African Americans > 60 (> 60); eGFR For Non-African Americans > 60 (> 60)
[2020-02-22] MEDS ORDERED: 0.9 % Sodium Chloride w KCl 40 MEQ/1,000 ML MLS IVC ONE (02:57)
[2020-02-22] MEDS ORDERED: Ipratropium/Albuterol Neb 3 ML IH SCH ×2 (05:32→06:00)
[2020-02-22] MEDS ORDERED: Naloxone 0.4 MG/ML INJ IVP PRN ×3 (05:32→09:19)
[2020-02-22] MEDS ORDERED: NON-FORMULARY MEDICATION 1 EACH EACH (Alendronate Sodium 70 MG) PO SCH ×2 (05:32→06:00)
[2020-02-22] MEDS ORDERED: Baclofen 10 MG TABLET PO PRN ×3 (05:32→09:19)
[2020-02-22] MEDS ORDERED: Acetaminophen 325 MG TABLET PO PRN ×3 (05:32→09:19)
[2020-02-22] MEDS ORDERED: Ondansetron ODT 4 MG TAB.RAPDIS SL PRN ×3 (05:32→09:19)
[2020-02-22] MEDS ORDERED: Ipratropium/Albuterol Neb 3 ML ONE (06:25)
[2020-02-22] MEDS ORDERED: *HR* Enoxaparin 30 MG/0.3 ML SYRINGE SQ SCH ×2 (07:00)
[2020-02-22] MEDS ORDERED: Tiotropium 18 MCG inhalation IH SCH ×3 (07:00→10:00)
[2020-02-22] MEDS ORDERED: Levalbuterol Neb 0.63 MG/3 ML ONE (08:50)
[2020-02-22] MEDS ORDERED: MOMETASONE IH SCH ×2 (09:00)
[2020-02-22] MEDS ORDERED: NON-FORMULARY MEDICATION 1 EACH EACH PO SCH (09:00)
[2020-02-22] MEDS ORDERED: FORMOTEROL IH SCH ×2 (09:00)
[2020-02-22] MEDS ORDERED: NON-FORMULARY MEDICATION 1 EACH EACH (Calcium Carbonate/Vitamin D3 [Calcium 600 + Vit D Ta PO SCH ×2 (09:00)
[2020-02-22] MEDS ORDERED: Cholecalciferol (D-3) 1,000 UNIT (25MCG) TABLET PO SCH (09:00)
[2020-02-22] MEDS ORDERED: Metoprolol XL (24 HR) Succ 50 MG TAB.ER.24H PO SCH ×2 (09:00)
[2020-02-22] MEDS ORDERED: [UNRECOGNIZED DRUG - OTHER] IH SCH ×2 (09:00)
[2020-02-22] MEDS ORDERED: Furosemide 20 MG TABLET PO SCH ×2 (09:00)
[2020-02-22] MEDS ORDERED: GLIMEPIRIDE 1 MG PO SCH ×2 (09:00)
[2020-02-22] MEDS ORDERED: BUSPIRONE HCL 15 MG PO SCH ×2 (09:00)
[2020-02-22] MEDS ORDERED: NON-FORMULARY MEDICATION 1 EACH EACH (Fluticasone/Umeclidin/Vilanter [Trelegy Ellipta 100- IH SCH ×2 (09:00)
[2020-02-22] MEDS ORDERED: methylPREDNISolone 125 MG/2 ML VIAL IVP SCH ×2 (09:30)
[2020-02-22] MEDS: Furosemide 20 MG TABLET PO SCH (09:39)
[2020-02-22] MEDS: *HR* Glimepiride 2 MG TABLET PO SCH (09:39)
[2020-02-22] MEDS: Metoprolol XL (24 HR) Succ 50 MG TAB.ER.24H PO SCH (09:39)
[2020-02-22] MEDS ORDERED: Levalbuterol Neb 1.25 MG/3 ML IH PRN (09:50)
[2020-02-22] MEDS ORDERED: Budesonide/Formoterol 160/4.5 1 PUFF INH IH SCH ×2 (10:00)
[2020-02-22] MEDS ORDERED: Tiotropium 18 MCG inhalation IH ONE (10:41)
[2020-02-22] MEDS: Tiotropium 18 MCG inhalation IH SCH (11:25)
[2020-02-22] MEDS ORDERED: *HR* Dextrose 50 % in Water (Syg) 50 ML SYRINGE IVP PRN (11:28)
[2020-02-22] MEDS ORDERED: D5% in Water 1,000 ML IVC PRN (11:28)
[2020-02-22] MEDS ORDERED: Dextrose Gel 15 GM/37.5 ML TUBE PO PRN ×2 (11:28)
[2020-02-22] MEDS: Budesonide/Formoterol 160/4.5 1 PUFF INH IH SCH ×2 (11:36→19:41)
[2020-02-22] MEDS: Ipratropium/Albuterol Neb 3 ML IH SCH ×5 (11:36→23:48)
[2020-02-22] MEDS: Insulin LISPRO 300 UNITS/3 ML VIAL SQ SCH ×4 (11:58→20:00)
[2020-02-22] MEDS: methylPREDNISolone 125 MG/2 ML VIAL IVP SCH ×3 (11:58→23:59)
[2020-02-22] MEDS: Nystatin SUSP 5 ML UD.LIQ PO SCH ×3 (14:18→20:09)
[2020-02-22] MEDS: Cholecalciferol (D-3) 1,000 UNIT (25MCG) TABLET PO SCH (14:19)
[2020-02-22] MEDS: Acetylcysteine 10% 2 ML INHSOL IH SCH ×2 (16:10→19:40)
[2020-02-22] MEDS: *HR* Warfarin 4 MG TABLET PO SCH (17:41)
[2020-02-22] MEDS ORDERED: *HR* Warfarin 4 MG TABLET PO SCH ×2 (18:00)
[2020-02-22] MEDS ORDERED: NON-FORMULARY MEDICATION 1 EACH EACH (Quetiapine Fumarate [Seroquel] 400 MG) PO SCH ×2 (21:00)
[2020-02-22] MEDS ORDERED: SIMVASTATIN 10 MG PO SCH ×2 (21:00)
[2020-02-22] MEDS ORDERED: QUEtiapine Fumarate 300 MG TABLET ONE (21:57)
[2020-02-23] MEDS: Ipratropium/Albuterol Neb 3 ML IH SCH ×6 (03:56→23:43)
[2020-02-23 05:17] LABS: Basophils % 0.1 %; Hematocrit 27.6 % (35.3-44.9); Hemoglobin 8.2 g/dL (11.5-15.4); Immature Granulocytes % 0.6 % (0-4); Lymphocytes # 0.3 K/mcL (0.6-4.6); Lymphocytes % 2.7 %; Mean Corpuscular HGB Conc 29.7 g/dL (31.6-35.5); Mean Corpuscular Hemoglobin 30.8 pg (28.0-33.3); Mean Corpuscular Volume 103.8 fL (83.0-100.0); Monocytes # 0.1 K/mcL (0.0-1.3); Monocytes % 1.2 %; Neutrophils # 9.1 K/mcL (1.6-8.9); Platelet Count 401 K/mcL (140-400); Red Blood Count 2.66 M/mcL (3.82-4.97); Red Cell Distribution Width 14.5 % (11.5-14.5); Segmented Neutrophils % 95.4 %; White Blood Count 9.6 K/mcL (4.3-11.1)
[2020-02-23 05:22] LABS: INR 2.5; Prothrombin Time 28.7 Seconds (9.4-12.1)
[2020-02-23 05:40] LABS: BUN/Creatinine Ratio 35 (6-26); Blood Urea Nitrogen 17 mg/dL (6-20); Calcium 9.7 mg/dL (8.6-10.3); Carbon Dioxide 43 mEq/L (23-29); Chloride 95 mEq/L (98-107); Glucose 112 mg/dL (70-105); Osmolality,Calculated 294 (280-300); Potassium 4.2 mEq/L (3.5-5.1); Sodium 141 mEq/L (136-145); eGFR For African Americans > 60 (> 60); eGFR For Non-African Americans > 60 (> 60)
[2020-02-23] MEDS: methylPREDNISolone 125 MG/2 ML VIAL IVP SCH ×2 (05:50→17:21)
[2020-02-23] MEDS ORDERED: *HR* Enoxaparin 30 MG/0.3 ML SYRINGE SQ SCH ×2 (06:00→07:00)
[2020-02-23] MEDS ORDERED: Tiotropium 18 MCG inhalation IH SCH (07:00)
[2020-02-23] MEDS: Acetylcysteine 10% 2 ML INHSOL IH SCH ×3 (07:16→23:42)
[2020-02-23] MEDS: Nystatin SUSP 5 ML UD.LIQ PO SCH ×4 (07:49→22:02)
[2020-02-23] MEDS: Cholecalciferol (D-3) 1,000 UNIT (25MCG) TABLET PO SCH (07:49)
[2020-02-23] MEDS: Furosemide 20 MG TABLET PO SCH (07:50)
[2020-02-23] MEDS: *HR* Glimepiride 2 MG TABLET PO SCH (07:50)
[2020-02-23] MEDS: Metoprolol XL (24 HR) Succ 50 MG TAB.ER.24H PO SCH (07:50)
[2020-02-23] MEDS: Insulin LISPRO 300 UNITS/3 ML VIAL SQ SCH ×4 (07:52→22:00)
[2020-02-23] MEDS: Tiotropium 18 MCG inhalation IH SCH (10:11)
[2020-02-23] MEDS: Budesonide/Formoterol 160/4.5 1 PUFF INH IH SCH ×2 (10:12→20:15)
[2020-02-23] MEDS: *HR* Warfarin 4 MG TABLET PO SCH (17:21)
[2020-02-24] MEDS: Ipratropium/Albuterol Neb 3 ML IH SCH ×6 (05:44→23:52)
[2020-02-24] MEDS: methylPREDNISolone 125 MG/2 ML VIAL IVP SCH ×2 (05:44→17:02)
[2020-02-24] MEDS: Levalbuterol Neb 1.25 MG/3 ML IH ONE (06:57)
[2020-02-24] MEDS: Budesonide/Formoterol 160/4.5 1 PUFF INH IH SCH ×2 (07:36→19:45)
[2020-02-24] MEDS: Tiotropium 18 MCG inhalation IH SCH (07:36)
[2020-02-24] MEDS: Acetylcysteine 10% 2 ML INHSOL IH SCH ×3 (07:36→23:51)
[2020-02-24] MEDS: Metoprolol XL (24 HR) Succ 50 MG TAB.ER.24H PO SCH (07:52)
[2020-02-24] MEDS: Nystatin SUSP 5 ML UD.LIQ PO SCH ×4 (07:52→22:01)
[2020-02-24] MEDS: *HR* Glimepiride 2 MG TABLET PO SCH (07:53)
[2020-02-24] MEDS: Cholecalciferol (D-3) 1,000 UNIT (25MCG) TABLET PO SCH (07:53)
[2020-02-24] MEDS: Furosemide 20 MG TABLET PO SCH (07:53)
[2020-02-24] MEDS: Insulin LISPRO 300 UNITS/3 ML VIAL SQ SCH ×4 (07:55→22:00)
[2020-02-24] MEDS ORDERED: *HR* Warfarin 2 MG TABLET PO SCH (18:00)
[2020-02-25] MEDS: Ipratropium/Albuterol Neb 3 ML IH SCH ×2 (04:17→07:29)
[2020-02-25] MEDS: methylPREDNISolone 125 MG/2 ML VIAL IVP SCH (04:17)
[2020-02-25 05:15] LABS: Basophils % 0.1 %; Hematocrit 26.5 % (35.3-44.9); Hemoglobin 8.1 g/dL (11.5-15.4); Immature Granulocytes % 0.7 % (0-4); Lymphocytes # 0.7 K/mcL (0.6-4.6); Lymphocytes % 5.3 %; Mean Corpuscular HGB Conc 30.6 g/dL (31.6-35.5); Mean Corpuscular Volume 101.5 fL (83.0-100.0); Mean Platelet Volume 8.9 fL (9.4-12.4); Monocytes # 0.5 K/mcL (0.0-1.3); Monocytes % 3.6 %; Neutrophils # 12.1 K/mcL (1.6-8.9); Nucleated Red Blood Cells 0.1 /100 WBC (0); Platelet Count 470 K/mcL (140-400); Red Blood Count 2.61 M/mcL (3.82-4.97); Red Cell Distribution Width 14.8 % (11.5-14.5); Segmented Neutrophils % 90.3 %; White Blood Count 13.4 K/mcL (4.3-11.1)
[2020-02-25 05:22] LABS: INR 2.8; Prothrombin Time 32.1 Seconds (9.4-12.1)
[2020-02-25 05:34] LABS: BUN/Creatinine Ratio 39 (6-26); Blood Urea Nitrogen 22 mg/dL (6-20); Calcium 9.1 mg/dL (8.6-10.3); Carbon Dioxide 42 mEq/L (23-29); Chloride 91 mEq/L (98-107); Glucose 291 mg/dL (70-105); Osmolality,Calculated 298 (280-300); Potassium 3.9 mEq/L (3.5-5.1); Sodium 137 mEq/L (136-145); eGFR For African Americans > 60 (> 60); eGFR For Non-African Americans > 60 (> 60)
[2020-02-25] MEDS: Budesonide/Formoterol 160/4.5 1 PUFF INH IH SCH (07:29)
[2020-02-25] MEDS: Acetylcysteine 10% 2 ML INHSOL IH SCH (07:29)
[2020-02-25] MEDS: Tiotropium 18 MCG inhalation IH SCH (07:30)
[2020-02-25 07:34] VITALS: BP 147/81
[2020-02-25] MEDS: Metoprolol XL (24 HR) Succ 50 MG TAB.ER.24H PO SCH (08:05)
[2020-02-25] MEDS: Insulin LISPRO 300 UNITS/3 ML VIAL SQ SCH (08:06)
[2020-02-25] MEDS: *HR* Glimepiride 2 MG TABLET PO SCH (08:06)
[2020-02-25] MEDS: Nystatin SUSP 5 ML UD.LIQ PO SCH (08:06)
[2020-02-25] MEDS: Furosemide 20 MG TABLET PO SCH (08:06)
[2020-02-25] MEDS: Cholecalciferol (D-3) 1,000 UNIT (25MCG) TABLET PO SCH (08:07)
== END 2020-02-25 10:00 | disposition home or self-care (01) | DRG 191 ==
LOC: INPGRE 01:44 → EMEROOGRE 01:44 → INPGRE 05:00 → EMEROOGRE 05:03 → UNDODISOB 05:55
PROVIDERS: ADMIT Family Medicine; ATTEND Family Medicine

== ENCOUNTER 2020-09-25 09:55 | Inpatient (IN) ==
[2020-09-25] MEDS ORDERED: *HR* Dextrose 50 % in Water (Syg) 50 ML SYRINGE ONE ×2 (10:00→12:55)
[2020-09-25] MEDS ORDERED: 0.9 % Sodium Chloride 1,000 ML IVC ONE (10:01)
[2020-09-25 10:28] LABS: Basophils % 0.2 %; Eosinophils % 0.1 %; Hematocrit 32.2 % (35.3-44.9); Immature Granulocytes % 0.4 % (0-4); Lymphocytes # 0.8 K/mcL (0.6-4.6); Lymphocytes % 7.2 %; Mean Corpuscular Hemoglobin 24.7 pg (28.0-33.3); Mean Corpuscular Volume 88.2 fL (83.0-100.0); Mean Platelet Volume 8.8 fL (9.4-12.4); Monocytes # 0.5 K/mcL (0.0-1.3); Monocytes % 4.8 %; Neutrophils # 9.2 K/mcL (1.6-8.9); Platelet Count 676 K/mcL (140-400); Red Blood Count 3.65 M/mcL (3.82-4.97); Red Cell Distribution Width 15.6 % (11.5-14.5); Segmented Neutrophils % 87.3 %; White Blood Count 10.5 K/mcL (4.3-11.1)
[2020-09-25 10:34] LABS: Hypochromasia Present (Not Present); Macrocytosis Present (Not Present); Microcytosis Present (Not Present); Platelet Estimate Increased (Normal)
[2020-09-25 10:35] LABS: Basophilic Stippling 1+ (Not Present)
[2020-09-25 10:40] LABS: INR 1.3; Prothrombin Time 14.6 Seconds (9.4-12.1)
[2020-09-25 10:53] LABS: Troponin I 0.04 ng/mL (< 0.04)
[2020-09-25 11:12] LABS: Bilirubin,Urine Negative (Negative); Blood,Urine Negative (Negative); Clarity,Urine Clear (Clear); Color,Urine Yellow (Yellow); Glucose,Urine (UA) 100 mg/dL (Normal); Ketones,Urine Negative (Negative); Leukocyte Esterase,Urine Small (Negative); Nitrite,Urine Negative (Negative); PH,Urine 6.5 pH Units (5.0-8.0); Protein,Urine Negative (Neg-Trace); Urobilinogen,Urine Normal (Normal)
[2020-09-25 11:29] LABS: Bacteria,Urine Moderate per hpf (None-Few); Squamous Epithelial Cell,Urine Few per hpf (None-Few)
[2020-09-25] MEDS ORDERED: *HR* LORazepam 0.5 MG TABLET PO ONE ×2 (11:48→20:00)
[2020-09-25 12:10] LABS: Alanine Aminotransferase 11 Units/L (7-52); Albumin 3.6 g/dL (3.5-5.7); Albumin/Globulin Ratio 1.3 (1.1-2.2); Alkaline Phosphatase 86 Units/L (34-104); Aspartate Amino Transferase 20 Units/L (13-39); BUN/Creatinine Ratio 17 (6-26); Bilirubin,Total 0.3 mg/dL (0.3-1.0); Blood Urea Nitrogen 8 mg/dL (6-20); Calcium 9.5 mg/dL (8.6-10.3); Carbon Dioxide 35 mEq/L (23-29); Chloride 98 mEq/L (98-107); Globulin 2.7 g/dL (2.4-3.5); Glucose < 10 mg/dL (70-105); Potassium 3.9 mEq/L (3.5-5.1); Sodium 139 mEq/L (136-145); Total Protein 6.3 g/dL (6.4-8.9); eGFR For African Americans > 60 (> 60); eGFR For Non-African Americans > 60 (> 60)
[2020-09-25] MEDS ORDERED: D5% in 0.45% NACL 1,000 ML IVC SCH ×2 (13:30→17:35)
[2020-09-25 16:07] LABS: Influenza A PCR Negative (Negative); Influenza B PCR Negative (Negative); Resp. Syncytial Virus PCR Negative (Negative); SARS-CoV-2 by PCR (In House) Negative (Negative)
[2020-09-25] MEDS ORDERED: Ondansetron 4 MG/2 ML VIAL IVP PRN (17:35)
[2020-09-25] MEDS ORDERED: Naloxone 0.4 MG/ML INJ IVP PRN (17:35)
[2020-09-25] MEDS ORDERED: Ondansetron ODT 4 MG TAB.RAPDIS SL PRN (17:35)
[2020-09-25 18:50] LABS: INR 1.4; Prothrombin Time 15.4 Seconds (9.4-12.1)
[2020-09-25] MEDS ORDERED: Ipratropium/Albuterol Neb 3 ML IH PRN (22:27)
[2020-09-25] MEDS ORDERED: Baclofen 10 MG TABLET PO PRN (22:27)
[2020-09-25] MEDS ORDERED: Ketorolac 15 MG/ML VIAL IVP PRN (23:01)
[2020-09-25] MEDS ORDERED: *HR* Dextrose 50 % in Water (Syg) 50 ML SYRINGE IVP PRN (23:04)
[2020-09-25] MEDS ORDERED: *HR* Dextrose 50 % in Water (Vial) 50 ML VIAL IVP PRN (23:26)
[2020-09-25] MEDS ORDERED: D5% in Water 1,000 ML IVC PRN (23:26)
[2020-09-25] MEDS ORDERED: Dextrose Gel 15 GM/37.5 ML TUBE PO PRN ×2 (23:26)
[2020-09-26] MEDS ORDERED: D5% in 0.45% NACL 1,000 ML IVC SCH (00:12)
[2020-09-26 04:47] LABS: Hematocrit 26.4 % (35.3-44.9); Mean Corpuscular HGB Conc 27.3 g/dL (31.6-35.5); Mean Corpuscular Hemoglobin 24.3 pg (28.0-33.3); Mean Corpuscular Volume 89.2 fL (83.0-100.0); Platelet Count 514 K/mcL (140-400); Red Blood Count 2.96 M/mcL (3.82-4.97); White Blood Count 8.1 K/mcL (4.3-11.1)
[2020-09-26 04:53] LABS: INR 1.4; Prothrombin Time 15.7 Seconds (9.4-12.1)
[2020-09-26 04:56] LABS: Hemoglobin 7.2 g/dL (11.5-15.4)
[2020-09-26 05:07] LABS: Alanine Aminotransferase 9 Units/L (7-52); Albumin 2.9 g/dL (3.5-5.7); Albumin/Globulin Ratio 1.4 (1.1-2.2); Alkaline Phosphatase 70 Units/L (34-104); Aspartate Amino Transferase 15 Units/L (13-39); BUN/Creatinine Ratio 16 (6-26); Bilirubin,Total 0.2 mg/dL (0.3-1.0); Blood Urea Nitrogen 9 mg/dL (6-20); Calcium 8.6 mg/dL (8.6-10.3); Carbon Dioxide 36 mEq/L (23-29); Chloride 96 mEq/L (98-107); Globulin 2.1 g/dL (2.4-3.5); Glucose 54 mg/dL (70-105); Osmolality,Calculated 278 (280-300); Potassium 3.7 mEq/L (3.5-5.1); Sodium 136 mEq/L (136-145); eGFR For African Americans > 60 (> 60); eGFR For Non-African Americans > 60 (> 60)
[2020-09-26] MEDS ORDERED: Tiotropium 10 INH DOSE IH SCH (07:00)
[2020-09-26 07:23] VITALS: BP 120/73
[2020-09-26] MEDS ORDERED: *HR* LORazepam 0.5 MG TABLET PO SCH (09:00)
[2020-09-26] MEDS ORDERED: predniSONE 10 MG TABLET PO SCH (09:00)
[2020-09-26] MEDS ORDERED: Metoprolol XL (24 HR) Succ 50 MG TAB.ER.24H PO SCH (09:00)
[2020-09-26] MEDS ORDERED: Fluticasone Propionate Nasal 50 MCG/SPRAY BOTTLE NS SCH (09:00)
[2020-09-26] MEDS ORDERED: *HR* Acetylcysteine 20% 600 MG/3 ML ORAL SYRINGE PO SCH (09:00)
[2020-09-26] MEDS ORDERED: Budesonide/Formoterol 160/4.5 1 PUFF INH IH SCH (10:00)
== END 2020-09-26 10:43 | disposition short-term general hospital (02) | DRG 638 ==
LOC: EMEROOGRE 09:55 → INPGRE 17:01
PROVIDERS: ADMIT Family Medicine; ATTEND Family Medicine